=== PATIENT | female | born 1960 | race Caucasian/White ===

== ENCOUNTER 2017-05-23 08:30 | Outpatient (RCR) | payer OTHER, SELFPAY ==
--- NOTE | 2017-05-23 11:09 | BH.SGPN ---
Service Group Progress Note - Session Psychotherapy Session #1 Date Open:: 18 - 6 group members Time Started:: 09:03 Time Stopped:: 10:10 Targeted Problem #:: 1 Type of Group:: Process Goal of Group:: The goal of today's group was to check-in with client's mood, stressors, and positives, and review homework. Behaviors/Verbalizations/Mental Status:: Client's first day of group Client Response/Progress/Benefit:: Client responded well to session, receptive to supportive statements and open in discussion. Client reports feeling apprehensive today as she was worried about fitting in at group, but shared once she heard others talk I felt like I liked all of you right away. Client shared group seems authentic and client likes knowing people will care about how she genuinely feels rather than wanting a fake answer. Client expressed her depression has brought client to IOP as client has been isolating, feeling hopeless, and having a hard time functioning. Client reported she wants to work on many things during IOP, but mainly wants to learn how to get her life back on track. Client received numerous comments of support which client shared helped her feel more hopeful. Client seemed to benefit from engaging with peers and gaining emotional support. Client to continue IOP to prevent decompensation and reduce depressive symptoms. Eye Contact:: Fair Motor Activity:: Appropriate Appearance:: Neat Mood:: Anxious, Depressed Affect:: Constricted - Client became tearful when discussing symptoms Thoughts:: Linear, No evidence of hallucinations/delusions noted Staff Interventions:: Therapist used open-ended questions to elicit information about client's current stressors and mood state. Therapist was supportive by using active listening and reflection.
--- NOTE | 2017-05-23 13:00 | BH.COMM ---
Communication Note - Communication with Client Communication Note: Therapist followed up with client after her first day in IOP. Client shared she enjoyed her first day, liking the structure of group and her peers. Client was receptive to this therapist being client's individual therapist throughout IOP. Therapist gave client a worksheet to help identify treatment goals and symptoms. Client willing to complete the worksheet and meet with therapist later this week.
--- NOTE | 2017-05-23 17:03 | BH.SGPN_ITS ---
Service Group Progress Note - Session Psychotherapy Session #2 Date Open:: 05/23/17 Time Started:: 10:23 Time Stopped:: 11:17 Targeted Problem #:: 1 Type of Group:: Illness Management - 6 participant Goal of Group:: To increase understanding of the various life chapter?s people can go through and the impacts various internal and external factors may have on what chapter someone may currently be on. Another goal was to increase self- awareness of view of their past, present, and future. Client Response/Progress/Benefit:: Client first day in IOP program and was adjusting to the dtnamics of the group. She did well to remain attentive throughout and easily engaged in the discussion reviewing whether or not we have the power to change the course of our own path. Client discussed with the group feeling as though change is possible but that at times it seems as if she does not know where to begin. Client indicated connecting with the activity in which participants were given 2 descriptions of the same thing and challenged to guess what they think these things are. She expressed that this had challenged her to view things form another perspective and opened the door to beginning to see her ability to change the current chapter of lefe she is in by viewing her circumstances differently. CLient benefited from the support and encouragement provided by the group and noted relating to others experiences. CLient recommended continuing IOP to further explore areas of treatment relevent to decreasing current symptoms. Eye Contact:: Good Motor Activity:: Appropriate Appearance:: Casual Speech:: Appropriate Mood:: Euthymic Affect:: Congruent Thoughts:: Linear, Logical, No evidence of hallucinations/delusions noted Staff Interventions:: Therapist provided each group member with a handout labeled ?Chapters of My Life? and facilitated group discussion about each of the five chapters from the handout. Therapist led an activity to help client?s gain self-awareness of how perspective impacts the chapter we may be on. Therapist provided support by using reflective listening and providing feedback. Psychotherapy Session #3 Date Open:: 05/23/17 Time Started:: 11:25 Time Stopped:: 12:15 Targeted Problem #:: 1 Type of Group:: Functional Skills Development - 6 participants Goal of Group:: To provide education regarding the 7 steps to effective decision making and assist client in identifying the personal steps needed to act on the decision to move past current chapter of life. Another goal was to identify what strategies and supports may help them move to the next chapter in life. Client Response/Progress/Benefit:: Client again did wellt o remain engaged and attentive throughout session. She opnely discussed how fear of judgement and self doubt have impacted her ability to make the decision to incorporate healthier changes in her own life. CLient indicated that her depression has been so bad in the past that she has not had the energy or motivation to do anything about it. She disclosed feeling as though reaching out for help and agreeing to attend the IOP program was a major step towards changing how she manages depressive symptoms moving forward. CLient benefited from reviewing the 7 steps to effective decision making and identified making the decision to implement positive self talk statements into her daily routine. CLient displaying progress in her willingness to open up to the group. She is recommended ongoing IOP tx to maintain stability and continue to work on managing sx of depression. Eye Contact:: Good Motor Activity:: Appropriate Appearance:: Casual Speech:: Appropriate Mood:: Euthymic Affect:: Constricted Thoughts:: Linear, Logical, No evidence of hallucinations/delusions noted Staff Interventions:: Therapist processed which chapter each group member identified for the past, present and future. Provided education regarding the 7 steps to effective decision making and assisted clients in applying this concept to personal life. Therapist used open ended questions to elicit elaboration. Therapist led discussion about what has helped each person move to the current life chapter. Therapist assisted clients with identifying what are barriers to moving forward. Therapist provided support by using active listening and providing feedback.
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
--- NOTE | 2017-05-26 10:44 | BH.MTP_ITS ---
[facility] Treatment Plan - Patient Information Program Physician:: Olga Villegas Primary Therapist:: Shanita Tripathi - Psychiatric Diagnoses Psychiatric Diagnoses:: Bipolar 2 disorder ; Generalized anxiety disorder Diagnosis Code(s):: F 31.81 - Estimated LOS Estimated LOS (in weeks):: 6 Problem/Goal #1 - Problem/Goal #1 Stated Goal:: Client will increase mood stability and reduce depression due to Bipolar II through Intensive Outpatient Services. Description of Barriers: Client reports multiple negative core beliefs of self and cognitive distortions that impact client?s self-esteem and cause client to isolate. Client reports her depressive symptoms have become ?so mind-bogglingly bad? that she has not been leaving the house or engaging in pleasurable activities, ?even though I know it would help.? Client reports insight to unhealthy coping patterns, but expresses difficulty with challenging her thoughts and changing behaviors. Client shares her weight is an ongoing stressor and trigger to her depression and anxiety as client reports it keeps her from being social. Lastly, client reports difficulty with expressing her emotions as she has suppressed them throughout the years. Client states this has led to self-judgment and criticism as client shared she ?should? feel happy. Functional Impact: Client, who was referred by Dr. Klein, reports a history of bipolar 2 disorder and generalized anxiety disorder. At admission, client reported her symptoms have been predominantly depressed over the past several years with her depression being worse over the past few months. Client reports belief her current worsening symptoms are due to recent holiday season and winter. Client endorses depressed mood with anhedonia, decreased energy, increased appetite, negative thoughts of self, hopelessness, and difficulty concentrating. Client reported passive thoughts of although states she will never act.? Client shared her depression and anxiety prevent client from functioning at her baseline as client is unable to work, has been isolating, and reports poor self-esteem. Goal Relevant Strengths/Supports: Client appears intelligent, kind, and motivated in her treatment process. Client reports strong support from her and states having a few close friends who understand client's current struggles. Client is medication compliant and is connected to outpatient psychiatry. Client reports stepping out of my comfort zone and coming to group as a huge strength as client has not been leaving the house. Client identified music as a positive force in her life and would like to get back into playing it. - Objectives Objective #1 Stated Objective: Client will identify at least 2-3 negative self-talk messages used to reinforce feelings of worthlessness and replace thoughts with positive messages. Interventions: Therapist will help client identify distorted, negative beliefs about self and replace with more realistic, affirmative messages. Therapist will use CBT to help client increase insight to the connection between thoughts , emotions, and behaviors. Discharge Criteria: Client will have achieved this goal when can verbalize at least 2 negative self-talk messages and effectively replace those thoughts with affirmative messages. Target Date: 07/04/17 Review Date: 06/20/17 Status: open Objective #2 Stated Objective: Client will reduce isolation and anhedonia through learning 2- 3 healthy coping skills to break the negative maintenance cycle of depression. Interventions: Therapist will provide psychoeducation on depression and help client increase awareness of personal warning signs, thoughts, and behaviors keeping client stuck in an unhealthy cycle of depression. Therapist will assist client in setting small goals to promote behavioral activation and increase self -confidence. Therapist will teach client various coping skills to reduce depression and increase expressing emotion in a healthy way. Discharge Criteria: Client will have accomplished this goal when can report reduced isolation and utilizing at least 2 healthy coping skills to break the unhealthy maintenance cycle of depression. Target Date: 07/04/17 Review Date: 06/20/17 Status: open Problem/Goal #2 - Problem/Goal #2 Stated Goal:: Client will reduce overall frequency, intensity, and duration of anxiety and ruminations so that daily functioning is not impaired. Description of Barriers: Client reports multiple negative core beliefs of self and cognitive distortions that impact client?s self-esteem and cause client to isolate. Client reports her depressive symptoms have become ?so mind-bogglingly bad? that she has not been leaving the house or engaging in pleasurable activities, ?even though I know it would help.? Client reports insight to unhealthy coping patterns, but expresses difficulty with challenging her thoughts and changing behaviors. Client shares her weight is an ongoing stressor and trigger to her depression and anxiety as client reports it keeps her from being social. Lastly, client reports difficulty with expressing her emotions as she has suppressed them throughout the years. Client states this has led to self-judgment and criticism as client shared she ?should? feel happy. Functional Impact: Client, who was referred by Dr. Klein, reports a history of bipolar 2 disorder and generalized anxiety disorder. At admission, client reported her symptoms have been predominantly depressed over the past several years with her depression being worse over the past few months. Client reports belief her current worsening symptoms are due to recent holiday season and winter. Client endorses depressed mood with anhedonia, decreased energy, increased appetite, negative thoughts of self, hopelessness, and difficulty concentrating. Client reported passive thoughts of although states she will never act.? Client shared her depression and anxiety prevent client from functioning at her baseline as client is unable to work, has been isolating, and reports poor self-esteem. Goal Relevant Strengths/Supports: Client appears intelligent, kind, and motivated in her treatment process. Client reports strong support from her and states having a few close friends who understand client's current struggles. Client is medication compliant and is connected to outpatient psychiatry. Client reports stepping out of my comfort zone and coming to group as a huge strength as client has not been leaving the house. Client identified music as a positive force in her life and would like to get back into playing it. - Objectives Objective #1 Stated Objective: Client will identify 2-3 anxiety triggers and warning signs and 2 coping skills to use when feeling anxious. Interventions: Therapist will help client increase self-awareness of warning signs, cognitive distortions, and triggers for anxiety. Therapist will assist client in developing coping strategies to manage ruminating thoughts and challenge negative thinking. Discharge Criteria: Client will have met this goal when can identify at least 2 triggers/warning signs and 2 ways to cope with anxiety and rumination. Target Date: 07/04/17 Review Date: 06/20/17 Status: open
--- NOTE | 2017-05-26 10:44 | BH.MDN ---
Multi-Disciplinary Note - Note 45-min Individual Time Started:: 09:35 Date: 05/26/17 Purpose of session/treatment goals addressed:: The purpose of this session was to gather information on client's current symptoms, stressors, and treatment goals. Another goal was to build rapport and set a small daily goal. Eye Contact:: Good Motor Activity:: Appropriate Appearance:: Neat Speech:: Appropriate Mood:: Irritable, Dysthymic Affect:: Congruent - smiling and laughing occasionally. Thoughts:: Linear, Logical, No evidence of hallucinations/delusions noted Staff Interventions:: Therapist used active listening and open-ended questions to explore client's current stressors, symptoms, and supports. Therapist used strengths perspective to build rapport and help client identify positives. Therapist assisted client in identifying overall treatment goals and gave client homework to walk for a minute and a half today. Client Response:: Client responded well to session, open and receptive. Client has a history of bipolar disorder, but reported depression brought client to IOP as her symptoms have been worsening over the past year. Client identified her depressive symptoms as lack of motivation, anhedonia, increased appetite, negative thoughts, no energy, feelings of hopelessness, and a depressed mood nearly every day. Client stated she also experiences anxiety which includes avoidance behaviors and physical symptoms. Client shared she has enjoyed the structure and the realness of the program so far as client no longer wants to hide her emotions, she wants to leave the mask at the door. Client identified her treatment goals as reducing isolation by getting out of the house at least three days a week, reducing negative thinking, and decreasing depression. Client reported her has been a positive support and she would like to include him in the treatment process. Client stated her weight has been an ongoing contributor to her overall mood as client shared it prevents her from going places, doing things she enjoys, and being social which exacerbates depression and keeps me in the cycle. Client was receptive to setting a goal today to walk for a minute and a half. Risks/Concerns:: Client denies suicidal ideation, plan, and intent as of 05/26/17. Progress Toward Goals/Plan:: No progress noted yet as client just started IOP. However, client appeared motivated to engage in treatment and reports her current medication has somewhat improved her mood. Client to continue IOP to prevent decompensation and promote mood stability. Time Stopped:: 10:25
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
--- NOTE | 2017-05-27 12:53 | BH.DR.ITP ---
Initial Treatment Plan - Patient Information Visit Information: ADMISSION DATE: EXPECTED LOS: 4-6 weeks Diagnoses:: Bipolar 2 disorder F 31.81 - Problems/Symptoms Problem #1:: Mood symptoms/depression Symptom:: Sad mood, anhedonia, decreased energy, passive thoughts of , biologic disruption of appetite. Problem #2:: Anxiety Symptom:: rumination
--- NOTE | 2017-05-27 15:35 | BH.SGPN_ITS ---
Service Group Progress Note - Session Psychotherapy Session #2 Date Open:: 05/26/17 Time Started:: 10:20 Time Stopped:: 11:17 Targeted Problem #:: 1 Type of Group:: Illness Management - 6 participants Goal of Group:: The goal of group was to increase understanding of the benefits social support provides in mental health wellness. Another goal was to increase self-awareness of the barriers that prevent client to seeking support or utilizing the support they have. Client Response/Progress/Benefit:: Client responded positively to group and was actively engaged in both discussion and activity portion of session. She indicated connecting with the topic of social supports and conversation reviewing the importance of accessing supports as well as common barriers in doing so. CLient expressed feeling as though she has very few supports at present but is hopeful to identify new ways of reaching out. She appeared to benefit from the support of the group environment as well as recognizing that other participants also struggle to access healthy levels of support. Client would benefit from increased focus on identifying ways to re-engage with current supports as well as strategies for addressing anxiety preventing her from doing so. Eye Contact:: Fair Motor Activity:: Appropriate Appearance:: Casual Speech:: Appropriate Mood:: Anxious, Dysthymic Affect:: Full Thoughts:: Linear, Logical, No evidence of hallucinations/delusions noted Staff Interventions:: Therapist led a group discussion about importance of social supports. Therapist facilitated an activity that required the group members to utilize support from each other. Therapist utilized the activity as a tool to connect the importance of accepting social support. Therapist provided support through reflective listening and giving feedback. Psychotherapy Session #3 Date Open:: 05/26/17 Time Started:: 11:22 Time Stopped:: 12:20 Targeted Problem #:: 1 Type of Group:: Functional Skills Development - 5 participants Goal of Group:: The goal of group was to increase understanding of the different types of social support. Another goal was to identify one type of support the client?s desire and establish one small step towards achieving that support. Client Response/Progress/Benefit:: Client continues to do well to provide positive input and actively participate in group. She remained engaged throughout the discussion reviewing the various types of social support available outside of personal relationships and provided the suggestion of cheondoism organizations. CLient discussed ways to identify if one's current support system is adequate as well as how to begin to repair or improve an area of support that may be lacking. She identified that by increasing her use of supports she may be encourage to begin leaving the house more often. She expressed wanting to increase her ability to identify warning signs she needs more support. Client recommended continued IOP tx focusing on reducing sx of anxiety. Eye Contact:: Good Motor Activity:: Appropriate Appearance:: Casual Speech:: Appropriate Mood:: Euthymic, Anxious Affect:: Congruent Thoughts:: Linear, Logical, No evidence of hallucinations/delusions noted Staff Interventions:: Therapist facilitated group discussion on the different types of social support and importance of each type of support. A social support worksheet, was utilized to give clients direction in identifying which type of support they desired, how it will help, and identifying the first small step towards the desired support. Therapist provided homework for each group member to try and accomplish the one small step each group member identified on the worksheet.
--- NOTE | 2017-05-27 15:39 | BH.NA_ITS ---
Physical Data - Vital Signs Pulse Rate: 72 Respiratory Rate: 14 Blood Pressure: 118/81 - Height/Weight Height: 1.73 m Weight:: 158.757 kg Weight in Pounds: 350.0 lbs Current Medication Compliance - Medication Compliance Do you take your medication as prescribed?: Yes Do you need assistance with taking medication?: No Have you had side effects from medication?: Yes - nortriptyline caused palpitations and weakness Nutritional History - Appetite Nutritional Instructions:: If client shows signs of a swallowing problem, weight change of 10 pounds or more in the last month, or is on a diabetic diet, the physician will review and request a dietitian consult, as appropriate. All unintentional weight loss will be referred to the physician for decision on need for dietitian consult. Describe your appetite:: Good Have you noticed a change in your eating habits lately?: Yes - appetite has been increased recently, corresponds to worsening depression Additional nutritional information:: Client drinks approx 6 cups of caffienated beverages daily. Functional Assessment - Sleep Pattern Describe any problems with sleeping: Currently denies problems with sleep while taking medications. - Activities Motor Activity:: Functional Sensory/Communication Assess - Hearing Problems Do you have any hearing problems?: Adequate - Communication Problems Do you have difficulty understanding what people are saying?: No Do you have trouble putting your thoughts into words or expressing what you want to say?: No Do people ever have trouble understanding what you say?: No What is your primary language?: Chinese Learning Assessment - Learning Barriers Learning Barriers:: Ready to learn Medical Problems/History - Metabolic Conditions Metabolic: Hypothyroidism - Gastrointestinal Conditions Gastrointestinal: Dyspepsia - GERD - Musculoskeletal Conditions Musculoskeletal: Arthritis - osteo - Pain Assessment Do you have acute or chronic pain?: No - Female Reproductive Do you think you may be ?: No Number of pregnancies:: 0 Number of children:: 0 Have you reached menopause?: Yes Do you have any history of breast disease?: No Surgical History - Surgical History Have you had any surgeries? If so, list type and date:: No Substance Abuse - Substance Abuse Please describe substance abuse in the last 30 days:: Client denies ETOH, tobacco, and illicit substance use. Mental Status Summary - Mental Status Significant Findings/Observations on Appearance and Mood:: Client is A&Ox4, casually dressed with appropriate hygiene and grooming. She makes good eye contact and has normal activity. Speech is clear and of regular rate and rhythm. Mild depression and mild-mod anhedonia. Affect is mood congruent. Logical associations. Normal process. No symptoms of delusions. Denies SI, but endorses intermittent passive thoughts of . No DI or hallucinations. Suicide Assessment - Suicidal Ideation Are you currently or have you been suicidal in the past?: Yes Suicidal Intentional Rating Scale (SIRS): Suicidal thoughts (past) Physician Notification: If Active suicidal thoughts/Will not contract for safety is checked, contact physician and document in the Physician Notification section below. Assault History/Potential - History of Assault Do you have a history of assaulting someone?: No Physician Notification: If yes, notify physician and document notification date and time below. Fall Risk Assessment - Age Age: Less than 60 - Mental Status Mental Status: Willing & able to ask for assistance when needed - Physical Status Physical Status: No problems - Impairments Impairments: None - Elimination Elimination: Continent AND independent - Gait or Balance Gait or Balance: Walks independently - Hx of Falls History of falls in the past 6 months: No known history - Medications/Substances Psychotropics:: Mood stabilizers, Anxiolytics (e.g. benzodiazepines) Medications/substances used within the past 24 hours or ordered to administer: 1 -2 of the medications/substances listed above - Total Score Total Points:: 1 RN Summary of Impressions - Impressions Recommendations: Include psychiatric and medical issues, treatment planning recommendations, and discharge planning needs. Impressions: Psychiatric Issues: bipolar 2, anxiety Impression: General Medical Conditions: hypothyroid, GERD, osteoarthritis - Level of Care How do the client's current symptoms and functional deficits support need for this level of care?: Client has been progressively decompensating for several months. She endorses isolation, poor motivation, and not being able to find pleasure in anything. She has had intermittent passive thoughts of , but denies SI. The client's mental health symptoms have caused somatic symptoms including GI upset and other stomach problems. She feels hopeless. Identifies as sole support person.
--- NOTE | 2017-05-27 15:46 | BH.SGPN_ITS ---
Service Group Progress Note - Session Psychotherapy Session #3 Date Open:: 05/27/17 - 8 group members Time Started:: 11:27 Time Stopped:: 12:25 Targeted Problem #:: 1 Type of Group:: Functional Skills Development Goal of Group:: To rehearse resilient factors and identify ways to maintain resilience despite hardships and stressors. Client Response/Progress/Benefit:: Client responded well to session, engaged in activity, but quiet at times in discussion. Client reported the activity and topic helped client recognize the resiliency traits she possesses as she and her peers often disqualify positives. Client identified ?getting out of my comfort zone? as a time client demonstrated resiliency. Client stated that the resiliency traits, if practiced and applied, can ?help make us well.? Client shared she plans to focus on accepting change is a part of life to promote resiliency. Client appeared to benefit from identifying ways she demonstrates resiliency and by learning how to maintain resiliency despite hardships. Progress noted in client's increased engagement in group and increased insight. Client to continue IOP to promote mood stability and prevent decompensation. Eye Contact:: Good Motor Activity:: Slowed Appearance:: Neat Speech:: Appropriate Mood:: Dysthymic Affect:: Flat Thoughts:: Linear, No evidence of hallucinations/delusions noted Staff Interventions:: Therapist led group in an activity in which group members were challenged to stay resilient despite various stressors and hardships added to activity. Therapist provided each group member with a stress ball and used stress ball as a tool to discuss factors of resilient personality. Therapist provided group members with a handout about the building blocks of resilience. Therapist provided support by using reflective listening.
--- NOTE | 2017-05-30 14:42 | BH.SGPN ---
Service Group Progress Note - Session Psychotherapy Session #2 Date Open:: 05/30/17 - 6 group members Time Started:: 10:18 Time Stopped:: 11:14 Targeted Problem #:: 1 Type of Group:: Illness Management Goal of Group:: To increase understanding of what stress is, identify current life stressors, and connect impact stressors have on mental health. Client Response/Progress/Benefit:: Client responded well to session, engaged in discussion. Client appeared to connect with the topic sharing stress can be a motivator, but chronic stress can lead to lack of functioning and increased depression. Client shared stress can impact physical, mental, and emotional well-being. Client identified her personal stressors as: loneliness, depression, weight, and isolation. Client shared her stress jar is currently overflowing which makes it hard for client as she feels overwhelmed. Client reported when her stress is overflowing? she shuts down and isolates. Client appeared to benefit from gaining awareness of personal stressors, stating ?I need to know what my stressors are so I can do something about it.? Client to continue IOP to prevent decompensation and promote use of healthy coping skills. Eye Contact:: Good Motor Activity:: Slowed Appearance:: Casual Speech:: Appropriate Mood:: Dysthymic Affect:: Constricted Thoughts:: Linear, No evidence of hallucinations/delusions noted Staff Interventions:: Therapist facilitated discussion about stress. Therapist facilitated an activity in which group members were asked to identify various stressors they have in their life currently. Therapist instructed group members to indicate if certain stressors were larger than others. Therapist led processing of each member?s stress jar and helped them connect impact the stress has on their mental health. Psychotherapy Session #3 Date Open:: 05/30/17 - 6 group members Time Started:: 11:20 Time Stopped:: 12:16 Targeted Problem #:: 1 Type of Group:: Functional Skills Development Goal of Group:: To identify what stressors clients have control over and what stressors have no control over. Another goal was to increase repertoire of healthy strategies to help manage stress. Client Response/Progress/Benefit:: Client responded well to session, anxious in activity, but able to manage emotions and complete task with group. Client stated the activity helped her gain awareness that she uses negative self-talk which reduces her confidence in managing stress. Client discussed the importance of putting energy into reducing stressors in her control rather than ruminating on things out of her control. Client's in control stressors included loneliness, getting out of the house, and depression. Client identified strategies for stress management such as accepting help from supports, communicating needs, and challenging self-doubt. Client appeared to benefit from increasing her repertoire of stressing reducing coping skills. Progress noted in client's increased awareness, but can continue to benefit from challenging negative thoughts. Eye Contact:: Good Motor Activity:: Appropriate Appearance:: Casual Speech:: Appropriate Mood:: Anxious Affect:: Constricted Thoughts:: Linear, No evidence of hallucinations/delusions noted Staff Interventions:: Therapist facilitated discussion about control versus no control and helped group members connect the concept to stressors. Therapist led discussion about importance of putting forth more energy on those stressors they can control. Therapist facilitated brainstorming of strategies to help manage stress level. Therapist provided support by using active listening and providing feedback.
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
--- NOTE | 2017-06-01 15:25 | BH.SGPN ---
Service Group Progress Note - Session Psychotherapy Session #1 Date Open:: 06/01/17 Time Started:: 09:08 Time Stopped:: 10:09 Targeted Problem #:: 1 Type of Group:: Process - 7 participants Goal of Group:: The goal of group was to check-in with clients on current mood, stressors, and positives and from previous group session. Client Response/Progress/Benefit:: Client did well to engage in session and appeared responsive to group. She discussed feeling kind of positive but I know I have a lot of work left which is daunting. CLient went on to descirbe feeling overwhelmed by everything she is trying to do in order to improve her mood but feels as though she is not making as much progress as she should be. She went on to share recently beginning to experience guilt regarding not having her brother in her life despite knowing he is toxic. Client benefited from fellow participants discussing similar experiences and hearing the thoughts and strategies that work for other members of the group in combating negative self-talk. Client indicated that she knows she needs to practice healthy boundary setting and self care and indicated plans to begin focusing more on what she is doing right throughout the day. Client recommended continued IOP to maintain stability and continue to challenge distorted thinking patterns and neg. core beliefs. Eye Contact:: Fair Motor Activity:: Appropriate Appearance:: Casual Speech:: Appropriate Mood:: Dysthymic Affect:: Flat Thoughts:: Linear, Logical, No evidence of hallucinations/delusions noted Staff Interventions:: Therapist used open-ended questions to elicit information about client's current stressors and mood state. Therapist was supportive by using active listening and reflection. Therapist utilized a quote to introduce the topic of the day.
--- NOTE | 2017-06-01 15:32 | BH.SGPN_ITS ---
Service Group Progress Note - Session Psychotherapy Session #2 Date Open:: 06/01/17 Time Started:: 10:20 Time Stopped:: 11:10 Type of Group:: Illness Management - 9 group members Goal of Group:: To increase understanding of fear and explore the negative impact fear of failure can have on mental health and decision making. Client Response/Progress/Benefit:: Pt was an active participant in group activity and discussion. Participated with group in discussion on definitions of failure. Shared how failure relates to her citing her setbacks with weight manangment ? I've lost and gained weight so many times. This is the worset problem of my life She worked with the group during activity and processed the activity with group pointing out how learning from setbacks, missteps, and failures during the activity helped them accomplish their goals. Shared the top 3 things that she was able to take from the group which were; Failures can be looked at as setbacks instead of complete failures, fear of failure keeps us from trying, and progress doesn't always have to mean moving forward. Progress noted through increased awareness and education on how fear of failure impacts mental wellness. Able to identify that avoiding fear altogether is unrealistic. Also able to identify how failure can be beneficial. Eye Contact:: Fair Motor Activity:: Restless Appearance:: Casual Speech:: Appropriate Mood:: Anxious, Depressed Affect:: Congruent Thoughts:: Linear, Logical, No evidence of hallucinations/delusions noted Staff Interventions:: Therapist facilitated discussion about fear and impact fear of failure can have. Therapist led group in an experiential activity in which client?s would fail numerous times throughout, but were given the opportunity to try again. Therapist led the processing of the activity and assisted clients with connecting how fear of failure impacted their decision making during the activity. Psychotherapy Session #3 Date Open:: 06/01/17 Time Started:: 11:20 Time Stopped:: 12:10 Type of Group:: Functional Skills Development - 9 group members Goal of Group:: To identify the impact fear of failure has had on the group members lives and identify strategies to overcome fear of failure. Client Response/Progress/Benefit:: Active participant in group discussion and activity. Completed worksheet regarding how failure has impacted them, what they gained from the group topic, and how they plan to use topics discussed today in daily life. Shared in small group that she learned today Ways to learn from past failures to overcome fear of failure. Stated that she plans to not be so hard on myself and rewarding my success along the way Progress noted AEB increased education and awareness. Will continue in IOP to maintain gains and prevent further decompensation. Eye Contact:: Fair Motor Activity:: Restless Appearance:: Casual Speech:: Appropriate Mood:: Anxious, Depressed Affect:: Congruent Thoughts:: Linear, Logical, No evidence of hallucinations/delusions noted Staff Interventions:: Therapist provided each group member with a worksheet to complete that asked questions about their experiences with fear of failure. Therapist led the processing of the worksheet, helping client?s connect how fear of failure has impacted them. Therapist provided support by using active listening and providing feedback.
--- NOTE | 2017-06-03 14:43 | BH.NET_ITS ---
Nursing Education/Training - Session Information Type of Session: Individual Symptom management (include medical issues as they relate to psychiatric symptoms):: Client wished to discuss starting on a prescription for Contrave that was provided several months ago by her PCP for weight loss. After discussion with Dr. Villegas, client was advised by this RN that this is contraindicated with her bipolar disorder and current medications. Burproprion is known to destabilze patient's with bipolar disorder and naltrexone should not be used with Haugan as it may block the effects of the Haugan. Client is advised to address her PCP for other weight loss options. She verbalizes understanding and is thankful for the recommendations; she is not planning to start the Contrave. MICHELLE PanN, RN
--- NOTE | 2017-06-03 15:34 | BH.SGPN_ITS ---
Service Group Progress Note - Session Psychotherapy Session #1 Date Open:: 06/03/17 Time Started:: 09:05 Time Stopped:: 10:15 Targeted Problem #:: 1 Type of Group:: Process Goal of Group:: The goal of today's group was to check-in with client's mood, stressors, and positives, review homework and introduce topic for the day. Client Response/Progress/Benefit:: Pt shared she is feeling crabby this morning, but didn't have a specific reason for being agitated. Pt reported she did not want to attend group this morning, however is glad she chose to attend. Pt reported she used positive self-talk to get herself to group today. Pt shared she reminded herself if she stayed home it would not make her feel better and later in the day she would beat myself up for not going. Pt reported feeling hopeful this morning that she was able to push through the initial negativity this morning. Pt showing progress by using positive self-talk to overcome negat ivity. Eye Contact:: Good Motor Activity:: Appropriate Appearance:: Casual Speech:: Appropriate Mood:: Euthymic, Irritable Affect:: Congruent Thoughts:: Linear, Logical, No evidence of hallucinations/delusions noted Staff Interventions:: Therapist used open-ended questions to elicit information about client's current stressors and mood state. Therapist was supportive by using active listening and reflection.
--- NOTE | 2017-06-06 15:19 | BH.SGPN ---
Service Group Progress Note - Session Psychotherapy Session #1 Date Open:: 06/06/17 Time Started:: 09:05 Time Stopped:: 09:57 Targeted Problem #:: 1 Type of Group:: Process - 6 participants Goal of Group:: The goal of today's group was to check-in with client's mood, stressors, and positives, review homework. Client Response/Progress/Benefit:: Client well engaged in session and openly participated throughout. She provided positive encouragement to fellow participants as well as remained receptive of feedback provided. CLient shared that she had felt as though she made some progress over the weekend as she had completed her goals of sitting outside and walking on the treadmill. Client indicated I know it may not seem like much to everyone else, but that's actually a lot for me. She appeared to benefit from reassurance provided by group members as well as others discussing similar experiences. Client reflected upon struggling to feel as though the progress she is making actually counts. She indicated that taking time to reflect back on the skills she has learned as well as challenge the distorted thoughts is beginning to help. She appears to be making progress in identifying when she is using distorted thinking patterns. Recommended continued IOP tx to improve Client ability to consistently apply healthy internal coping skills and improve self-talk messages. Eye Contact:: Good Motor Activity:: Appropriate Appearance:: Casual Speech:: Appropriate Mood:: Anxious, Dysthymic Affect:: Congruent Thoughts:: Linear, Logical, No evidence of hallucinations/delusions noted Staff Interventions:: Therapist used open-ended questions to elicit information about client's current stressors and mood state. Therapist reviewed homework assigned from previous groups. Therapist was supportive by using active listening and reflection.
--- NOTE | 2017-06-06 16:34 | BH.SGPN ---
Service Group Progress Note - Session Psychotherapy Session #2 Date Open:: 06/06/17 Time Started:: 10:10 Time Stopped:: 11:05 Targeted Problem #:: 1 Type of Group:: Illness Management Goal of Group:: To increase self-awareness of current reality in regards to mental wellness and desired mental wellness. Client Response/Progress/Benefit:: Client active and engaged throughout session AEB contributing thoughts to discussion and listening to peers. Client identified her lack of self-worth becomes an obstacle for her own growth because client reports she will do anything for others, but not for myself. Client recognizes need to identify and overcome the obstacles she places in front of herself. Client reported for her current reality she feels she is in a hole and currently in the recovery zone because she is making progress with opening up about her emotions, playing piano and walking. Client reported in her desired reality she wants to be out of the hole using her coping skills, volunteering, signing, and getting basic tasks and chores done efficiently. Client seemed to benefit from identifying a future goal for herself in regards to her mental health. Progress noted AEB client reporting she is making steps forward by using her skills and decreasing anxiety. Eye Contact:: Good Motor Activity:: Appropriate Appearance:: Casual Speech:: Appropriate Mood:: Anxious, Dysthymic Affect:: Congruent Thoughts:: Linear, Logical, No evidence of hallucinations/delusions noted Staff Interventions:: Therapist facilitated group discussion about current reality in regards to mental health. Client provided each group member a piece of paper and asked them to draw their current reality. Therapist led the processing of each group members drawing. Therapist provided each group member with a second piece of paper and asked clients to draw desired mental wellness. Therapist processed each group members drawing, helping clients connect the two realities. Psychotherapy Session #3 Date Open:: 06/06/17 Time Started:: 11:15 Time Stopped:: 12:05 Targeted Problem #:: 1 Type of Group:: Functional Skills Development Goal of Group:: To identify obstacles in clients path to mental wellness and identify strategies to help one overcome various obstacles. Client Response/Progress/Benefit:: Client contributed positively to discussion and listened attentively to peers. Client identified the personal obstacles that are holding her back from desired reality include: fear of outside, overwhelming thoughts, depression, and dread of what might happen. When processing activity client noted the importance of using positive supports because when don't ask for help she keeps her self stuck from progress. Client seemed to benefit from increased awareness of her personal obstacles and increased repertoire of strategies that can help her overcome obstacles. Eye Contact:: Good Motor Activity:: Appropriate Appearance:: Casual Speech:: Appropriate Mood:: Anxious, Dysthymic Affect:: Congruent Thoughts:: Linear, Logical, No evidence of hallucinations/delusions noted Staff Interventions:: Therapist facilitated group discussion about obstacles and the hesitations of overcoming obstacles. Client led group in activity that gave client the opportunity to problem solve various obstacles throughout. Therapist helped clients connect how each obstacle is preventing them from achieving their desired reality. Therapist provided support by using reflective listening and providing feedback.
--- NOTE | 2017-06-08 10:24 | BH.SGPN ---
Service Group Progress Note - Session Psychotherapy Session #1 Date Open:: 18 - 6 group members Time Started:: 09:11 Time Stopped:: 10:09 Targeted Problem #:: 1 Type of Group:: Process Goal of Group:: The goal of today's group was to check-in with client's mood, stressors, and positives, and introduce topic for the day. Client Response/Progress/Benefit:: Client responded well to session, active participant and providing suggestion to peers. Client reports mixed emotions this morning as she stated waking up feeling determined and strong but then saw an injured horse on her way to group which caused client to cry and feel depressed. Client stated, I'm still feeling determined to keep progressing, but that got to me. Therapist and group provided emotional support and normalized client's emotions. Client stated she has been seeing a lot of progress, she has been walking on the treadmill, cleaning, and setting goals each day. Client shared plans to go to [employer] tomorrow and get out of the house. Client stated, it may not seem like much to others, but it's a huge win for me. Client appeared to benefit from processing emotions and reflecting on progress. Client to continue IOP to promote gains and reduce depression. Eye Contact:: Good Motor Activity:: Appropriate Appearance:: Casual Speech:: Appropriate Mood:: Depressed Affect:: Constricted Thoughts:: Linear, No evidence of hallucinations/delusions noted Staff Interventions:: Therapist used open-ended questions to elicit information about client's current stressors and mood state. Therapist was supportive by using active listening and reflection.
--- NOTE | 2017-06-08 13:44 | BH.MDN ---
Multi-Disciplinary Note - Note Family Time Started:: 12:25 Date: 06/08/17 Purpose of session/treatment goals addressed:: The purpose of this session was to engage client's in the treatment process through use of psychoeducation and communication of mental health warning signs and needs. Another goal was to address unrealistic expectations, barriers, and establish individual and couple goals to promote client's progress. Other topics included: cognitive distortions, boundaries, and strengths. Eye Contact:: Good Motor Activity:: Appropriate Appearance:: Casual Speech:: Appropriate Mood:: Dysthymic Affect:: Full Thoughts:: Linear, No evidence of hallucinations/delusions noted Staff Interventions:: Therapist used active listening and open-ended questions to explore client's current stressors, barriers, and mental health needs. Therapist elicited discussion between client and her to promote mental health support, open communication, and awareness of warning signs and distortions. Therapist educated client's on anxiety, depression, and cognitive distortions. Therapist explored client's unrealistic expectations of self and helped client challenge negative thought patterns that maintain a maintenance cycle for depression. Therapist helped client and her explore ways to increase communication and set boundaries with other family members. Therapist gave client and homework to complete a fear ladder which will help client slowly increase confidence in managing anxiety-provoking situations. Therapist used strengths-perspective to help client focus on progress. Client Response:: Client and , Nicholas, responded well to session, open to increase communication of mental health needs. Client had identified several goals for the session including challenging ruts or negative thoughts, discussing visiting Nicholas's mom, finding things to talk about together. Nicholas shared he would like to learn how to help client increase self-confidence and maintain progress. Client and Nicholas reflected on progress, such as reduced isolation and increased positive thinking. However, client reported she often disqualifies her progress because client has high expectations for self. Therapist and Nicholas helped client identify cognitive distortions and reframe into more realistic thoughts for client's progress. Client expressed she would like to be able to visit Nicholas's mother out of love for Nicholas, but client feels triggered while she is there as Nicholas's mother talks about weight, mosque, and has little mental health awareness. After processing barriers and problem solving with therapist, client and Nicholas stated it would be helpful to set time and topic boundaries when they visit to help client feel more comfortable. The couple also talked about bringing their dog for support and scheduling something enjoyable to do together that day. Client shared her concerns with the couple's communication. Client stated, I feel bad when Nicholas calls me and I have nothing to say, it's like my life is that worthless. Client able to challenge the cognitive distortion and was receptive to discussing different ways in which someone can show love. Nicholas stated he does not want or expect client to talk all the time, sharing quality time is more important to both of them. The couple was open to implementing a date/interest jar in which they will write ideas for dates and select one each month. Client shared this would help her feel more productive and give them something exciting to do. Client became enthralled when talking about getting back into blue [employer] music together. Client shared her negative thoughts of self and weight continue to prevent her from going places and getting out of the house. However, client recognized that working to reduce depression and negative thinking will positively impact weight as well. Client and Nicholas agreed to make small goals to help increase client's confidence and reduce anxiety. Client also willing to continue to challenge negative thoughts and communicate needs with Nicholas. Risks/Concerns:: Client denies suicidal ideation, plan, and intent as of 06/08/17. Progress Toward Goals/Plan:: Client demonstrating progress towards treatment goals as shown by her reports of less dark thinking and increased engagement in activities such as walking, cleaning, and playing music. Client continues to report a depressed mood, negative core beliefs, and anxiety. Client to continue IOP to promote use of healthy coping skills and to increase mood stability. Client and to continue communicating needs and establish small goals. Time Stopped:: 13:25
--- NOTE | 2017-06-08 15:46 | BH.SGPN ---
Service Group Progress Note - Session Psychotherapy Session #2 Date Open:: 06/08/17 Time Started:: 10:18 Time Stopped:: 11:14 Targeted Problem #:: 1 Type of Group:: Illness Management - 6 participants Goal of Group:: To increase understanding of communication and the various types of communication. Another goal was to increase understanding of impact communication styles can have. Client Response/Progress/Benefit:: Client responded well to session and indicated connecting with the topic. She served as an active participant and provided input as well as asked questions throughout. CLient discussed with the group the potential ways in which communication can impact mental health and idenntified potential benefits of effective communication. Client benefited from psychoeducation portion reviewing various types of communication, characteristics of each, and potential pros/cons. Client displayed progress in her level of insight regarding her own communication style and indicated identifying with assertive or passive forms of communication. CLient recommended continued focus on ways to communicate her needs with supports during times of increased anxiety or depression. Eye Contact:: Good Motor Activity:: Appropriate Appearance:: Casual Speech:: Appropriate Mood:: Dysthymic Affect:: Constricted Thoughts:: Linear, Logical, No evidence of hallucinations/delusions noted Staff Interventions:: Therapist facilitated the group discussion about communication and explained the different types of communication. Therapist assisted group members in connecting the communication styles to the way they communicate and impact the communication style has on their relationships. Therapist provided support by using active listening and providing feedback. Psychotherapy Session #3 Date Open:: 06/08/17 Time Started:: 11:19 Time Stopped:: 12:16 Targeted Problem #:: 1 Type of Group:: Functional Skills Development - 6 participants Goal of Group:: To identify important components of communication and practice specific, clear communication. Client Response/Progress/Benefit:: Client again did well to remain engaged in the group. SHe was able to work with fellow participants to utilize effective communication skills in order to overcome barriers and give the instructions needed for a fellow participant to complete the task. Client benefited from applying the reflections regarding communication in the activity to communicating in daily life. She indicated relating to difficulties in knowing how to describe her mental health symptoms to supports. CLient displayed progress in overall levels of participation durig group. She is recommended ongoing IOP tx to maintain stability and continue to improve ability to challenge use of distorted thinking patterns. Eye Contact:: Good Motor Activity:: Appropriate Appearance:: Casual Speech:: Appropriate Mood:: Dysthymic Affect:: Congruent Thoughts:: Linear, Logical, No evidence of hallucinations/delusions noted Staff Interventions:: Therapist explained challenge activity to group, connecting skills learned from previous session to current activity. Therapist led group in an activity in which participants would need to use communication skills to overcome communication barriers and assist another participant in accomplishing a task. Therapist facilitated processing of challenge activity and helped connect skills used in activity to real life situations.
--- NOTE | 2017-06-10 15:36 | BH.SGPN ---
Service Group Progress Note - Session Psychotherapy Session #2 Date Open:: 06/10/17 Time Started:: 10:30 Time Stopped:: 11:20 Targeted Problem #:: 1 Type of Group:: Illness Management Goal of Group:: The goal of this session was to increase self-awareness of what is holding them back from moving towards mental wellness and discuss importance of taking action in their treatment. Client Response/Progress/Benefit:: Pt active participant AEB many contribuitions throughout session as well as listening attentively to others. Pt connected with others that she tends to have awareness of what isn't helping her, but struggles with following through on what she thinks would be a healthier choice. Pt identified things that have too much control over her include: fear of change, fear of failure, low self-esteem, stress, physical limitations, not wanting to go out of the house, what-ifs, and fear of leaving home. Client identified fear in general is what has the most power of her and tends to keep her stuck. Client seemed to benefit from increased awareness of what is holding her back. Client showing progress with increased verbal contributions and opening up to others. Eye Contact:: Good Motor Activity:: Appropriate Appearance:: Casual Speech:: Appropriate Mood:: Euthymic, Anxious Affect:: Congruent Thoughts:: Linear, Logical, No evidence of hallucinations/delusions noted Staff Interventions:: Therapist facilitated discussion about what it means to take action in achieving mental health wellness. Therapist led activity in which clients were asked to identify the symptoms and things that they would like to take back control over. Therapist provided support by using active listening. Psychotherapy Session #3 Date Open:: 06/10/17 Time Started:: 11:30 Time Stopped:: 12:20 Targeted Problem #:: 1 Type of Group:: Functional Skills Development Goal of Group:: The goal of this session was to create a 30 day action plan that provides small goals that work towards taking action on one thing they would like to take back control over. Client Response/Progress/Benefit:: Client receptive to group AEB actively engaged in discussion and activity. Client identified for her 30 day plan of change she is focusing on decrease isolative behaviors. Client reported the motivation to follow through with this plan because decrease isolation could help client establish healthy relationships. Client identified the first step she is willing to take is to go outside each day with her dog. Client reported the next step she's willing to take is to call one person daily. Client shared the next step is to eliminate one hour of TV and use that time to sit in the sun or do something different in the house. Client reported lastly she will focus on reducing time on phone and drive to the local library at least twice a week. Client seemed to benefit from identifying small steps she's willing to take throughout a 30 day period to help reduce her isolative behaviors. Eye Contact:: Good Motor Activity:: Appropriate Appearance:: Casual Speech:: Appropriate Mood:: Euthymic Affect:: Congruent Thoughts:: Linear, Logical, No evidence of hallucinations/delusions noted Staff Interventions:: Therapist provided materials and guidance to help clients create a 30 day action plan. Therapist provided support by giving feedback and using active listening.
--- NOTE | 2017-06-13 10:40 | BH.SGPN ---
Service Group Progress Note - Session Psychotherapy Session #1 Date Open:: 06/13/17 Time Started:: 09:08 Time Stopped:: 10:00 Targeted Problem #:: 1 Type of Group:: Process - 6 group members Goal of Group:: The goal of today's group was to check-in with client's mood, stressors, and positives, review homework and introduce topic for the day. Client Response/Progress/Benefit:: Client reported she had a good weekend which she reported is surprising given her was gone for the weekend. Client shared she was able to get through the weekend in a positive way by having a schedule for each day that gave her something to do instead of syndrome. Client shared she felt more productive and found herself sitting around doing nothing. Client reported she did walk on the treadmill, went outside with her dog, and played the piano. Client reports she recently started to read a book that really has connected to what she is learning during IOP. Client demonstrating progress as evidenced by client reporting utilization of healthy coping strategiesand reporting decreased anxiety. Eye Contact:: Good Motor Activity:: Appropriate Appearance:: Casual Speech:: Appropriate Mood:: Euthymic Affect:: Congruent Thoughts:: Linear, Logical, No evidence of hallucinations/delusions noted Staff Interventions:: Therapist used open-ended questions to elicit information about client's current stressors and mood state. Therapist was supportive by using active listening and reflection.
--- NOTE | 2017-06-13 14:02 | BH.SGPN_ITS ---
Service Group Progress Note - Session Psychotherapy Session #2 Date Open:: 06/13/17 - 6 group members Time Started:: 10:10 Time Stopped:: 11:00 Targeted Problem #:: 1 Type of Group:: Illness Management Goal of Group:: To increase understanding of a crisis and improve client?s awareness of personal warning signs before crisis. Client Response/Progress/Benefit:: Client responded well to session, active in discussion. Client appeared to connected with the topic sharing ?in a crisis it? s hard to think clearly? which is why it?s important to recognize warning signs to prevent crisis. Client shared ?anything can be a crisis? depending on the level of stress a person has. Client described her personal crisis and ?feeling like I?m foggy and in a storm.? Client shared when she is in crisis her face gets out, she feels out of control, and client begins to panic. Client appeared to benefit from increasing awareness of what crisis is and how to better recognize her warning signs. Progress noted as client shared she has been using her and deep breathing to prevent crisis. Eye Contact:: Good Motor Activity:: Appropriate Appearance:: Neat Speech:: Appropriate Mood:: Euthymic Affect:: Constricted Thoughts:: Linear, No evidence of hallucinations/delusions noted Staff Interventions:: Therapist facilitated group discussion about defining a crisis and specifying various events that are considered a crisis. Therapist led the group in discussion about identifying personal warning signs before a crisis and importance of being aware of those signs. Therapist provided support by using active listening and providing feedback. Psychotherapy Session #3 Date Open:: 06/13/17 - 6 group members Time Started:: 11:11 Time Stopped:: 12:05 Targeted Problem #:: 1 Type of Group:: Functional Skills Development Goal of Group:: To increase awareness of warning signs before a crisis and identify interventions/coping strategies that would help clients proactively manage potential crises. Client Response/Progress/Benefit:: Client responded well to session, active participant. Client shared group was helpful because ?I learned that crisis is a cycle and there are ways to de-escalate even during the peak.? Client identified her top warning signs for crisis as not taking care of self, eating too much, and increased crying spells. Client created a crisis kit to promote the use of healthy coping skills. Client?s kit included soft items for texture and grounding, items that remind client of nature and self-soothing, and a heart to remind client of her . Client appeared to benefit from increasing knowledge of the crisis cycle and establishing coping skills to reduce crisis. Client to continue IOP to promote mood stability and reduce negative thoughts. Eye Contact:: Good Motor Activity:: Appropriate Appearance:: Neat Speech:: Appropriate Mood:: Euthymic Affect:: Constricted Thoughts:: Linear, No evidence of hallucinations/delusions noted Staff Interventions:: Therapist led the group in discussion about identifying personal warning signs before a crisis and importance of being aware of those signs. Therapist provided the group with various types of items and asked each group member to select five items that represent something that would be helpful in managing their warning signs of a crisis. Therapist facilitated group processing of the crisis emergency kits each group member created. Therapist used open-ended questions to encourage elaboration of each item chosen for their kit. Therapist helped clients connect how the crisis emergency kit could help be a crisis prevention tool.
[2017-08-12 10:31] VITALS: BP 118/81; PULSE 72; RESP 14
== END 2017-06-13 23:59 ==
LOC: BHIOP 08:30
PROVIDERS: Visit Provider Psychiatry & Neurology Psychiatry
DX: F31.9 Bipolar disorder, unspecified (principal); F41.1 Generalized anxiety disorder; I49.9 Cardiac arrhythmia, unspecified; E03.9 Hypothyroidism, unspecified; Z79.899 Other long term (current) drug therapy
CPT/HCPCS: H0035; 90834; 90847; 90853

== ENCOUNTER 2017-06-15 09:00 | Outpatient (RCR) | payer OTHER, SELFPAY ==
[2017-06-14 01:08] VITALS: PULSE 72; RESP 14
--- NOTE | 2017-06-15 11:25 | BH.SGPN ---
Service Group Progress Note - Session Psychotherapy Session #1 Date Open:: 06/15/17 Time Started:: 09:06 Time Stopped:: 10:06 Targeted Problem #:: 1 Type of Group:: Process Goal of Group:: The goal of today's group was to check-in with client's mood, stressors, and positives, review homework and introduce topic for the day. Client Response/Progress/Benefit:: Client alert and oriented, attentive to others and provided feedback to peers. Client reported she is feeling more positive because she has been able to do things she hasn't done for a long time. client shared she has a new music goal of playing the barotone. Client demonstrating progress AEB client reporting decrease in depressive and anxious symptoms as well as utilizing her healthy coping strategies more consistently. Eye Contact:: Good Motor Activity:: Appropriate Appearance:: Casual Speech:: Appropriate Mood:: Euthymic Affect:: Congruent Thoughts:: Linear, Logical, No evidence of hallucinations/delusions noted Staff Interventions:: Therapist used open-ended questions to elicit information about client's current stressors and mood state. Therapist was supportive by using active listening and reflection.
--- NOTE | 2017-06-15 13:24 | BH.MDN_ITS ---
Multi-Disciplinary Note - Note 45-min Individual Time Started:: 12:23 Date: 06/15/17 Purpose of session/treatment goals addressed:: The purpose of this session was to address client's current stressors, progress, and barriers. Another goal was to challenge negative thinking patterns keeping client stuck and discuss discharge. Eye Contact:: Good Motor Activity:: Appropriate Appearance:: Neat Speech:: Appropriate Mood:: Euthymic Affect:: Full, Other - became tearful when expressing gratitude Thoughts:: Linear, No evidence of hallucinations/delusions noted Staff Interventions:: Therapist used open-ended questions to explore client's current stressors, barriers, and progress. Therapist discussed discharge with client and informed client on the process of aftercare. Therapist used solution- focused techniques to address client's most important barriers, negative thinking. Therapist taught client various thought challenging strategies and helped client reframe cognitive distortions. Therapist used strengths perspective to reflect on client's progress and increased in self-esteem. Client Response:: Client responded well to session, open to discussing barriers. Client shared she would like to work on challenging negative thinking as client does well while at [facility], but struggles more at home. Client stated she would also like to work on establishing a routine to fill the void time for when client discharges from [facility]. Client shared a negative thought that continues to keep client stuck is I should be doing more at home. Client reported when she thinks this way it leads to guilt and lack of self-esteem. 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 Client also identified self- care strategies she has been implementing to reduce depression such as walking, playing music, following her 30 plan, and reading a motivation book. After identifying the things client is doing she stated, I guess I really am doing a lot more, I wouldn't have been able to do those things a month ago. Client also challenged the negative thought by gaining a different perspective. Client shared if Nicholas was experiencing depression, I would do all of this for him. Client and therapist also discussed the importance of having self-awareness of negative thoughts and to stop herself in the moment and challenge them. Client reported it will help her to actually stop her behaviors and challenge the negative thinking out loud to reduce ruminating. Client reports plan to try these thought challenging coping skills throughout the week while working on her other goals of reducing isolation. Risks/Concerns:: Client denies suicidal ideation, plan, and intent as of . Client reports improved mood and reduced depressive symptoms which serves as a protective factor. Progress Toward Goals/Plan:: Client demonstrating significant progress towards treatment goals as shown by her report of improved mood, reduced isolation, and generalization of healthy coping skills. However, client continues to report negative thinking and anxiety that prevents client from doing things outside of her home. Client to continue IOP to promote gains and improve core beliefs. Client reports belief she will be ready to discharge at 6 weeks. Time Stopped:: 13:03
--- NOTE | 2017-06-15 13:25 | BH.SGPN ---
Service Group Progress Note - Session Psychotherapy Session #2 Date Open:: 06/15/17 - 6 group members Time Started:: 10:18 Time Stopped:: 11:08 Targeted Problem #:: 1 Type of Group:: Illness Management Goal of Group:: To increase understanding of pitfalls and impact can have on mental health. Client Response/Progress/Benefit:: Client responded well to session, quiet, but participating when prompted. Client appeared to connect with the quote, sharing, the easy path is what we've always done. Client stated pitfalls are things that keep one off track and stray from the right path. Client shared depression and anxiety can make one vulnerable to pitfalls because it makes you think negatively. Client reported pitfalls can lead to reduced self-esteem, self-sabotage, and increase mental health symptoms. Client appeared to benefit from gaining awareness of how pitfalls impact mental health. Progress noted in client's improved mood and generalization of healthy coping skills, but can continue to benefit from challenging negative core beliefs. Eye Contact:: Good Motor Activity:: Appropriate Appearance:: Neat Speech:: Appropriate Mood:: Euthymic Affect:: Constricted Thoughts:: Linear, No evidence of hallucinations/delusions noted Staff Interventions:: Therapist facilitated discussion about pitfalls and assisted group in identifying common pitfalls that can set you back. Therapist led group in an activity to help group understand impact pitfalls can have on oneself and identify strategies that could help you get back on the right path. Therapist provided support by using active listening and providing feedback. Psychotherapy Session #3 Date Open:: 06/15/17 - 6 group members Time Started:: 11:16 Time Stopped:: 12:15 Targeted Problem #:: 1 Type of Group:: Functional Skills Development Goal of Group:: To identify personal pitfalls and what keeps them stuck from moving forward. Client Response/Progress/Benefit:: Client responded well to session, active participant. Client connected the activity to life sharing lack of awareness will impact our communication with supports. Client identified personal pitfalls of hers as letting self-care go, closing out the world, low self-esteem, and catastrophizing. Client helped the group identify strategies to overcome and prevent pitfalls such as establishing a crisis plan, communicating with supports, and challenging negative thoughts. Client appeared to benefit from increasing awareness of personal pitfalls and identifying strategies to overcome them. Progress noted in client's increased self-confidence as she has increased what she shares with peers. Client to continue IOP to promote gains and increase mood stability. Eye Contact:: Good Motor Activity:: Appropriate Appearance:: Neat Speech:: Appropriate Mood:: Euthymic Affect:: Congruent - smiling from positive feedback made by peers Thoughts:: Linear, No evidence of hallucinations/delusions noted Staff Interventions:: Therapist facilitated activity in which group members were given the task to identify personal pitfalls and what keeps them stuck from moving past the pitfall. Therapist provided group members with the homework assignment of identifying strategies that can help them overcome pitfalls.
--- NOTE | 2017-06-15 13:35 | BH.SGPN_ITS ---
Service Group Progress Note - Session Psychotherapy Session #2 Date Open:: 06/15/17 - 6 group members Time Started:: 10:18 Time Stopped:: 11:08 Targeted Problem #:: 1 Type of Group:: Illness Management Goal of Group:: To increase understanding of pitfalls and impact can have on mental health. Client Response/Progress/Benefit:: Client responded well to session, quiet, but participating when prompted. Client appeared to connect with the quote, sharing , the easy path is what we've always done. Client stated pitfalls are things that keep one off track and stray from the right path. Client shared depression and anxiety can make one vulnerable to pitfalls because it makes you think negatively. Client reported pitfalls can lead to reduced self-esteem, self- sabotage, and increase mental health symptoms. Client appeared to benefit from gaining awareness of how pitfalls impact mental health. Progress noted in client 's improved mood and generalization of healthy coping skills, but can continue to benefit from challenging negative core beliefs. Eye Contact:: Good Motor Activity:: Appropriate Appearance:: Neat Speech:: Appropriate Mood:: Euthymic Affect:: Constricted Thoughts:: Linear, No evidence of hallucinations/delusions noted Staff Interventions:: Therapist facilitated discussion about pitfalls and assisted group in identifying common pitfalls that can set you back. Therapist led group in an activity to help group understand impact pitfalls can have on oneself and identify strategies that could help you get back on the right path. Therapist provided support by using active listening and providing feedback. Psychotherapy Session #3 Date Open:: 06/15/17 - 6 group members Time Started:: 11:16 Time Stopped:: 12:15 Targeted Problem #:: 1 Type of Group:: Functional Skills Development Goal of Group:: To identify personal pitfalls and what keeps them stuck from moving forward. Client Response/Progress/Benefit:: Client responded well to session, active participant. Client connected the activity to life sharing ?lack of awareness will impact our communication with supports.? Client identified personal pitfalls of hers as letting self-care go, ?closing out the world,? low self- esteem, and catastrophizing. Client helped the group identify strategies to overcome and prevent pitfalls such as establishing a crisis plan, communicating with supports, and challenging negative thoughts. Client appeared to benefit from increasing awareness of personal pitfalls and identifying strategies to overcome them. Progress noted in client's increased self-confidence as she has increased what she shares with peers. Client to continue IOP to promote gains and increase mood stability. Eye Contact:: Good Motor Activity:: Appropriate Appearance:: Neat Speech:: Appropriate Mood:: Euthymic Affect:: Congruent - smiling from positive feedback made by peers Thoughts:: Linear, No evidence of hallucinations/delusions noted Staff Interventions:: Therapist facilitated activity in which group members were given the task to identify personal pitfalls and what keeps them stuck from moving past the pitfall. Therapist provided group members with the homework assignment of identifying strategies that can help them overcome pitfalls.
--- NOTE | 2017-06-17 10:52 | BH.SGPN ---
Service Group Progress Note - Session Psychotherapy Session #1 Date Open:: 18 - 7 participants Time Started:: 09:05 Time Stopped:: 10:10 Targeted Problem #:: 1 Type of Group:: Process Goal of Group:: The goal of today's group was to check-in with client's mood, stressors, and positives, review homework and introduce topic for the day. Client Response/Progress/Benefit:: Client responded well to session, at first appearing withdrawn, but then engaging with peers. Client reports feeling agitated today but is unsure of the trigger. Client stated she is hoping to find peace and calm from group today to help combat her agitation. Client shared she has been keeping busy working on her 30-day plan which includes contacting one person via phone call. Client stated she would also like to get into meditation, and was provided ideas by group and therapist. Client reported belief she is progressing, but continues to struggle with negative thinking and challenging cognitive distortions at times. Client recognized it will take patience and practice to be able to more effectively challenge negative thoughts. Client appeared to benefit from receiving coping skill ideas from peers. Progress noted in client's reduced depression and anxiety, but can continue to benefit from ongoing thought challenging and reframing core beliefs. Eye Contact:: Fair Motor Activity:: Slowed Appearance:: Casual Speech:: Soft Mood:: Irritable Affect:: Constricted Thoughts:: Linear, No evidence of hallucinations/delusions noted Staff Interventions:: Therapist used open-ended questions to elicit information about client's current stressors and mood state. Therapist was supportive by using active listening and reflection.
--- NOTE | 2017-06-20 09:12 | BH.TPR ---
Treatment Plan Review Date of Admission:: 05/23/17 Date of Treatment Plan Review:: 06/20/17 Admitting Diagnoses:: Bipolar 2 disorder F 31.81 Current Diagnoses:: Bipolar 2 disorder F 31.81 Patient's Response to Treatment:: Client has responded well to treatment so far as evidenced by her consistent attendance and active participation in group and individual sessions. Client reports reduced intensity of depression and anxiety through use of healthy coping skills including daily goal setting, positivity tracking, and challenging negative thoughts. Client provides good insight to group discussion and has been receptive to learning various techniques. Client has increased her self-esteem and confidence as shown by her improved engagement in group and disclosure of personal barriers. Client has been consistent with generalizing coping skills into her daily life and utilizing positive supports. However, client reports ongoing difficulty with challenging negative thoughts and continues endorse some isolative behaviors. Status of Current Problems and Symptoms: Client reports ongoing negative thinking and low self-esteem that continues to contribute to isolation and not reaching out to supports. Client also reports a depressed mood with reduced intensity. Problem #1 Problem Name:: Pt. will increase mood stability and reduce depressive symptoms Status of Goals:: Client has not yet achieved this goal as she continues to report negative thinking and low self-esteem. However, client has shown significant progress with reducing isolation, identifying positives, and accomplishing small daily goals. Client and therapist currently working on challenging negative thoughts, improving confidence, and maintaining progress. Team Recommendations:: Client recommended to continue to work on this treatment goal as she has improved with reducing isolation and reports an improved mood, but continues to report ongoing negative self-talk and negative core beliefs. Client recommended to continue to work on her 30 day plan to increase social support and reduce isolation. Problem #2 Problem Name:: Pt. will reduce frequency, intensity, and duration of anxiety Status of Goals:: Client has not yet accomplished this goal as she reports ongoing negative thinking and some avoidance behaviors. Significant progress noted as client has reported increased use of coping skills to reduce avoidance behaviors and challenge cognitive distortions. Client and therapist currently working on challenging cognitive distortions, recognizing anxiety triggers and false alarms, and increasing self-confidence. Team Recommendations:: Client recommended to continue working on treatment goal as she has demonstrated progress in identifying warning signs, and utilizing calming coping skills to reduce anxiety, but continues to struggle with some avoidance behaviors and negative thoughts. Client also recommended to follow up with outpatient counseling at [facility].
--- NOTE | 2017-06-20 13:51 | BH.SGPN ---
Service Group Progress Note - Session Psychotherapy Session #2 Date Open:: 06/20/17 Time Started:: 10:25 Time Stopped:: 11:15 Targeted Problem #:: 1 Type of Group:: Illness Management Goal of Group:: To increase understanding how positive and negative forces in life can impact balance in life. Client Response/Progress/Benefit:: Client receptive to session, sharing thoughts with group and listening to others. Client related to others comments that personal growth will not occur overnight, one has to put forth the effort in order for that to happen. During activity client struggled with putting self down by discouting her idea by saying nevermind, it probably won't work. With encouragement client would share her ideas. When processing client connected importance of accepting help from others and using healthy coping skills to balance both negative and positive forces. Client seemed to benefit from increasing awareness of impact negative forces can have on progress as well as encouragement by others to share her ideas during activity. Client to continue IOP level of care to maintain gains, improve self-esteem, and prevent decompensation. Eye Contact:: Good Motor Activity:: Appropriate Appearance:: Casual Speech:: Appropriate Affect:: Congruent Thoughts:: Linear, Logical, No evidence of hallucinations/delusions noted Staff Interventions:: Therapist facilitated group discussion about the various forces of life and helped clients connect the impact they have on balance in life. Therapist led group in an experiential activity in which group members had to work together to balance an object and move it to a designated location. Therapist utilized the activity as a tool to process the challenges connected with balancing various forces. Psychotherapy Session #3 Date Open:: 06/20/17 Time Started:: 11:25 Time Stopped:: 12:15 Targeted Problem #:: 1 Type of Group:: Functional Skills Development Goal of Group:: To identify positive and negative forces in life and identify which forces are helping stability and which forces are contributing to instability. Client Response/Progress/Benefit:: Client engaged and active throughout session. Client identified her positive forces to include: her spouse, connecting with supports, engaging in positive activities, getting outside, and exercise. Client reported negative forces to include: being alone, physical limitations, negative thinking, and becoming stagnant. client identified being alone to be the strongest force in her life currently because when alone tends to have more difficulty with applying her healthy skills. Client seemed to benefit from increasing awareness of her positive and negative forces as well as thinking about one step she can take in order to start balancing her forces to increase stabilization. Eye Contact:: Good Motor Activity:: Appropriate Appearance:: Casual Speech:: Appropriate Mood:: Euthymic Affect:: Congruent Thoughts:: Linear, Logical, No evidence of hallucinations/delusions noted Staff Interventions:: Therapist provided group with an example of a scenario of a person and the individuals positive and negative forces. Therapist provided each group member with a worksheet in which they were to identify five positive and five negative forces in their life. Therapist processed the activity with the group, helping others connect the impact certain forces have on their life balance.
--- NOTE | 2017-06-20 14:58 | BH.SGPN ---
Service Group Progress Note - Session Psychotherapy Session #1 Date Open:: 06/20/17 Time Started:: 09:09 Time Stopped:: 10:19 Targeted Problem #:: 1 Type of Group:: Process - 7 participants Goal of Group:: The goal of today's group was to check-in with client's mood, stressors, and positives, review homework and introduce topic for the day. Client Response/Progress/Benefit:: Client receptive of session and actively engaged in the group. She did well to provide input throughout and was open to feedback from the group. Client discussed feeling somewhat accomplished as she has continued to make healthy babysteps towards her treatment goals. CLient indicated walking a little further and playing the piano longer over the weekend. She shared knowing that this may not be a big deal for others but it is for me. Client at times struggles with disqualifying the positive progress she has made however is beginning to make progress in this area. CLient disclosed to the group that she has finally come to terms with wanting to address her disordered eating habits. She noted that sharing this with the group was really hard but important in beginning to address the issues. CLient benefited from the overwhelming support of the group and indicated that addressing it out loud was a somewhat empowering experience. Recommended continued focus on addressing negative coping mechanisms as well as challenging self-depricating talk. Eye Contact:: Good Motor Activity:: Appropriate Appearance:: Casual Speech:: Appropriate Mood:: Euthymic Affect:: Congruent Thoughts:: Linear, Logical, No evidence of hallucinations/delusions noted Staff Interventions:: Therapist used open-ended questions to elicit information about client's current stressors and mood state. Therapist was supportive by using active listening and reflection.
--- NOTE | 2017-06-23 14:50 | BH.SGPN_ITS ---
Service Group Progress Note - Session Psychotherapy Session #2 Date Open:: 06/23/17 - 6 group members Time Started:: 10:23 Time Stopped:: 11:20 Targeted Problem #:: 1 Type of Group:: Illness Management Goal of Group:: To identify within self what is keeping client trapped from achieving better quality of life. Client Response/Progress/Benefit:: Client responded well to session, active participant. Client connected with the quote sharing, there are external things that stop us, but we sabotage ourselves with guilt. Client identified various stressors in life that keep a person stuck such as depression, social anxiety, low-self esteem, and negative thinking. Client stated it is important to challenge negative thoughts and behaviors in order to break out of a maintenance cycle. Client identified the negative thoughts keeping her stuck such as I'm afraid to face the world, I can't handle this, nothing will get better. Client appeared to benefit from recognizing how these negative thoughts keep client stuck in a depressive cycle. Progress noted in client's improved mood and engagement during group, but can continue to benefit from challenging mistaken beliefs Eye Contact:: Good Motor Activity:: Appropriate Appearance:: Casual Speech:: Appropriate Mood:: Dysthymic Affect:: Constricted Thoughts:: Linear, No evidence of hallucinations/delusions noted Staff Interventions:: Therapist facilitated discussion about what is keeping client?s stuck from moving toward mental wellness. Therapist assisted clients in connecting how thoughts can contribute to keeping clients stuck. Therapist led discussion about barriers clients face from making changes to help one move forward. Therapist provided support by using active listening and giving feedback to others. Psychotherapy Session #3 Date Open:: 06/23/17 - 5 group members Time Started:: 11:30 Time Stopped:: 12:27 Targeted Problem #:: 1 Type of Group:: Functional Skills Development Goal of Group:: To identify what client can do to release self from those things that are trapping them to find more peace and quality in everyday life. Client Response/Progress/Benefit:: Client responded well to session, engaged in discussion. Client selected I'm afraid to face the world as the negative thought keeping client stuck. Client shared when she thinks this she isolates, stays afraid, and becomes more depressed. With group and therapist elicitation, client reframed the thought with the world's not a place that will harm me I can get out more. Client reported challenging the thought increases her self- esteem and would make client more likely to get out of the house. Client appeared to benefit from reframing her negative thought and identifying thought challenge strategies. Client to continue IOP to promote mood stability and coping skill consistency. Eye Contact:: Good Motor Activity:: Appropriate Appearance:: Casual Speech:: Appropriate Mood:: Euthymic Affect:: Constricted Thoughts:: Linear, No evidence of hallucinations/delusions noted Staff Interventions:: Therapist used examples of maintenance cycles to help clients gain awareness of how negative thinking is keeping clients stuck. Nathan lloyd facilitated discussion about different strategies for challenging negative thoughts, assisting clients in connecting how the strategies could benefit them. Therapist provided clients with homework to focus on one thing that is keeping them stuck and identify small steps to start moving towards mental wellness.
--- NOTE | 2017-06-23 14:51 | BH.MDN ---
Multi-Disciplinary Note - Note 30-min Individual Time Started:: 09:04 Date: 06/23/17 Purpose of session/treatment goals addressed:: The purpose of this session was to address client's current stressors, symptoms, and use of coping skills. Another goal was to identify and challenge negative thoughts keeping client stuck. Other topics included: body positivity and aftercare. Eye Contact:: Good Motor Activity:: Appropriate Appearance:: Casual Speech:: Appropriate Mood:: Dysthymic Affect:: Constricted Thoughts:: Linear, No evidence of hallucinations/delusions noted Staff Interventions:: Therapist used active listening and open-ended questions to explore client's current stressors, symptoms, and use of coping skills. Therapist helped client process emotions, normalize setbacks, and identify accomplishments in progress. Therapist educated client on maintenance cycles for anxiety and depression and discussed ways to reframe thoughts. Therapist and client discussed online support groups for binge-eating and body positivity. Therapist provided client an article and worksheet to complete for homework to challenge negative thinking and increase body positivity. Therapist and client discussed the benefits of having an outpatient therapist who specializes in eating disorders. Client Response:: Client responded well to session, open to meeting with therapist. Client reported overall, she has been doing well and seeing progress, but client had a rough few days due to her aunt passing away. Client stated, it wasn't even about her dying, it was not feeling comfortable with my clothes and body at the . Client shared she did not attend the because she did not have nice clothes to wear which created depression, anxiety, and self-hate. Client reported her was pushing me to go which further increased client's frustration with herself and the situation. Client and therapist discussed the overcoming setbacks and how to challenge negative self-talk. Client stated, I know I didn't handle it well, but I'm ready to get back on track. With therapist elicitation, client recognized she has not lost progress, but rather learned about herself which will help client overcome future challenges. Client shared she challenged her thinking and talked with her to improve her mood. Client receptive to exploring online binge-eating disorder groups, identifying positive personal body traits, and reading a body positivity blog for homework. Risks/Concerns:: Client denies suicidal ideation, plan, and intent as of 06/23/17. Client reports recognizing progress which is a protective factor. Progress Toward Goals/Plan:: Client demonstrating progress towards treatment goals as shown by her report of reduced depression, anxiety, and increased application of healthy coping skills. Client reports an overall improved mood and increased ability to reframe cognitive distortions. However, client continues to struggle with negative thoughts regarding weight and low self-esteem. Client to continue IOP to promote gains and follow up with new outpatient provider next week for individual counseling. Client reported having an eating disorder specific counselor will not work out logically due to transportation, but client was open to exploring online support groups. Time Stopped:: 09:25
--- NOTE | 2017-06-24 12:25 | BH.SGPN ---
Service Group Progress Note - Session Psychotherapy Session #1 Date Open:: 06/24/17 Time Started:: 09:10 Time Stopped:: 10:00 Type of Group:: Process - 6 group members Goal of Group:: The goal of today's group was to check-in with client's mood, stressors, and positives, and review homework. Client Response/Progress/Benefit:: Pt spoke when prompted however was quiet throughout most of group. Pt was attentive. Emotion for today is nervous and agitated. Shared that while driving into group today she and her encountered construction which causes significant anxiety for pt. Reports that she is still coming down from this. Discussed the extent that driving has led to anxiety in the past year. Was positive about the rest of today. Reports that she is planning on starting a diet plan next week and after talking with her therapist she is going to write a letter to her future self about the struggles and emotions she will encounter. Believes this will be helpful when she struggles with diet. Added that she has noticed decreased depressive episodes and increased energy since starting the program. Benefited from group support and feedback. Continues to be motivated to make postive changes in her life. Will continue in IOP to maintain gains, prevent decompensation, and improve daily functioning. Staff Interventions:: Therapist used open-ended questions to elicit information about client's current stressors and mood state. Therapist was supportive by using active listening and reflection.
--- NOTE | 2017-06-24 13:53 | PN_ITS ---
Progress Note Patient is seen in follow-up for bipolar 2 disorder, generalized anxiety disorder. History is been obtained per interview with patient, discussion with staff, review of chart. Case discussed with treatment team. Chief complaint-depression and anxiety-better each day. Interim history Moderate depressive symptoms persist but of decreased intensity over the past 3 weeks. Reports increased energy and participation in activities outside of the house. Increased focus on structuring time. Participating in 30 day plan. Reports that she is attempting to keep occupied with both productive and enjoyable activities. Playing the piano and [employer]. Increased interest in self-care. Appetite normal. Denies nausea vomiting or diarrhea. Planning to start meal plan next week. Denies irritability or anger. Mild ruminative anxiety but decreased intensity. Sleeping from 11:30 PM to 5 AM. No suicidal or homicidal ideation. No symptoms consistent with psychosis. Compliant with medications including Paxil 37.5 mg daily, Rexalti 1 mg daily, and trazodone 100 mg nightly. Has not needed Klonopin within the past 2 weeks. Denies adverse effects to medications. No evidence of EPS. Mental status exam Alert and oriented . No acute distress. Ambulatory with normal gait and station. Appears stated age. Casually dressed and groomed. Appropriate hygiene. Cooperative with interview. Good eye contact. No psychomotor agitation or retardation. Mood depressed improved. Affect congruent. Speech is clear and with regular rate and rhythm. Language fluent. Thought process organized. Associations logical. Thought content significant for ruminative anxiety and themes of depression. No suicidal or homicidal ideation related or detected.. No symptoms consistent with psychosis noted or detected. Immediate recent and remote memory grossly intact. Attention and concentration are fair. Estimated intelligence and fund of knowledge average. Judgment and insight improving. Diagnosis Bipolar 2 disorder Generalized anxiety disorder Hypothyroidism Cardiac arrhythmia Plan Continue IOP as the structured setting is necessary to maintain gains and prevent decompensation. Patient will likely benefit from ongoing IOP treatment. Risks benefits alternatives of medications discussed with patient. Patient acknowledges understanding. Continue Paxil 37.5 mg daily, Rexalti 1 mg daily, trazodone 100 mg p.o. nightly. Agrees to use Klonopin sparingly on a as needed basis. Started gabapentin 900 mg p.o. 3 times daily by medical service. Uses Imitrex rarely for migraines. Risk of serotonin syndrome discussed. Follow-up with Dr. Virginia Klein. 20 minutes Insight oriented psychotherapy regarding normalized eating and meal plan. Patient acknowledges understanding and is in agreement with plan. Feels able to maintain safety and agrees to seek help or emergency care feeling unsafe to self or others.
--- NOTE | 2017-06-24 14:37 | BH.SGPN ---
Service Group Progress Note - Session Psychotherapy Session #2 Date Open:: 06/24/17 - 7 group members Time Started:: 10:10 Time Stopped:: 11:15 Targeted Problem #:: 1 Type of Group:: Illness Management Goal of Group:: To increase understanding of what conflict is and increase awareness of how group members manage conflict. Client Response/Progress/Benefit:: Client responded well to session, participating when prompted. Client reported having a deep connection from the discussion of the quote, stating, there can be conflict in life and still be peace. Client reported one can have internal and external conflict. Client identified her conflict resolution style as a mix of accommodating and avoidant sharing she will agree with others to keep the peace, avoid confrontation, and let others take charge. Client recognizes her current conflict resolution style negative impacts her mental health as it contributes to low self-esteem and not getting her needs met. Client appeared to benefit from increasing awareness of her personal conflict resolution style. Client seems to be progressing as shown by her generalization of healthy coping skills and reduced intensity of depression and anxiety, but can continues to benefit from challenging negative thoughts. Eye Contact:: Good Motor Activity:: Appropriate Appearance:: Neat Speech:: Appropriate Mood:: Euthymic Affect:: Congruent Thoughts:: Linear, No evidence of hallucinations/delusions noted Staff Interventions:: Therapist facilitated discussion about conflict and conflict resolution. Therapist led group in an activity in which group members had to identify their initial response to conflict and how their response changes based on different situations. Therapist assisted clients with connecting the impact current conflict style has on their mental health. Psychotherapy Session #3 Date Open:: 06/24/17 - 6 group members Time Started:: 11:23 Time Stopped:: 12:13 Targeted Problem #:: 1 Type of Group:: Functional Skills Development Goal of Group:: To identify what contributes positively and negatively to conflict and appropriate ways to manage conflict with others. Client Response/Progress/Benefit:: Client responded well to session, active participant, joking with peers. Client reported it was easy for her to be cooperative and assertive in the activity because she feels respected in the group. Client recognized she can benefit from being more assertive in her daily life when dealing with conflict. Client helped the group identify strategies to improve conflict resolution outside of group such as being open-minded and looking at different perspectives, challenging cognitive distortions, and removing the mask to express true emotions. Client shared she plans to use strategies from today's group to try to stay true to my needs and communicate more effectively. Client appeared to benefit from learning various conflict resolution strategies. Client to continue IOP to promote mood stability and coping skills maintenance. Eye Contact:: Good Motor Activity:: Appropriate Appearance:: Neat Speech:: Appropriate Mood:: Euthymic Affect:: Congruent Thoughts:: Linear, No evidence of hallucinations/delusions noted Staff Interventions:: Therapist facilitated group activity in which group members were provided with materials and had to eliminate certain items with consensus from group. Therapist processed activity, helping clients connect throughout activity strategies each person used to manage conflict. Therapist led discussion about what contributes to conflict in a positive or negative manner. Therapist facilitated discussion about conflict resolution strategies and provided group member with a handout about effective ways to manage conflict.
--- NOTE | 2017-06-24 14:40 | BH.SGPN_ITS ---
Service Group Progress Note - Session Psychotherapy Session #2 Date Open:: 06/24/17 - 7 group members Time Started:: 10:10 Time Stopped:: 11:15 Targeted Problem #:: 1 Type of Group:: Illness Management Goal of Group:: To increase understanding of what conflict is and increase awareness of how group members manage conflict. Client Response/Progress/Benefit:: Client responded well to session, participating when prompted. Client reported having a deep connection from the discussion of the quote, stating, ?there can be conflict in life and still be peace.? Client reported one can have internal and external conflict. Client identified her conflict resolution style as a mix of accommodating and avoidant sharing she will agree with others to keep the peace, avoid confrontation, and let others take charge. Client recognizes her current conflict resolution style negative impacts her mental health as it contributes to low self-esteem and not getting her needs met. Client appeared to benefit from increasing awareness of her personal conflict resolution style. Client seems to be progressing as shown by her generalization of healthy coping skills and reduced intensity of depression and anxiety, but can continues to benefit from challenging negative thoughts. Eye Contact:: Good Motor Activity:: Appropriate Appearance:: Neat Speech:: Appropriate Mood:: Euthymic Affect:: Congruent Thoughts:: Linear, No evidence of hallucinations/delusions noted Staff Interventions:: Therapist facilitated discussion about conflict and conflict resolution. Therapist led group in an activity in which group members had to identify their initial response to conflict and how their response changes based on different situations. Therapist assisted clients with connecting the impact current conflict style has on their mental health. Psychotherapy Session #3 Date Open:: 06/24/17 - 6 group members Time Started:: 11:23 Time Stopped:: 12:13 Targeted Problem #:: 1 Type of Group:: Functional Skills Development Goal of Group:: To identify what contributes positively and negatively to conflict and appropriate ways to manage conflict with others. Client Response/Progress/Benefit:: Client responded well to session, active participant, joking with peers. Client reported it was easy for her to be cooperative and assertive in the activity because she feels respected in the group. Client recognized she can benefit from being more assertive in her daily life when dealing with conflict. Client helped the group identify strategies to improve conflict resolution outside of group such as being open-minded and looking at different perspectives, challenging cognitive distortions, and ? removing the mask? to express true emotions. Client shared she plans to use strategies from today's group to ?try to stay true to my needs? and communicate more effectively. Client appeared to benefit from learning various conflict resolution strategies. Client to continue IOP to promote mood stability and coping skills maintenance. Eye Contact:: Good Motor Activity:: Appropriate Appearance:: Neat Speech:: Appropriate Mood:: Euthymic Affect:: Congruent Thoughts:: Linear, No evidence of hallucinations/delusions noted Staff Interventions:: Therapist facilitated group activity in which group members were provided with materials and had to eliminate certain items with consensus from group. Therapist processed activity, helping clients connect throughout activity strategies each person used to manage conflict. Therapist led discussion about what contributes to conflict in a positive or negative manner. Therapist facilitated discussion about conflict resolution strategies and provided group member with a handout about effective ways to manage conflict.
--- NOTE | 2017-06-27 10:31 | BH.SGPN ---
Service Group Progress Note - Session Psychotherapy Session #1 Date Open:: 06/27/17 - 6 group members Time Started:: 09:03 Time Stopped:: 10:10 Targeted Problem #:: 1 Type of Group:: Process Goal of Group:: The goal of today's group was to check-in with client's mood, stressors, and positives, review homework and introduce topic for the day. Client Response/Progress/Benefit:: Client responded well to session, providing supportive statements to peers. Client reports feeling apprehensive today as she has been doing well coping with her mental health, but continues to struggle with managing her physical limitations. Client shared the weekend was pretty good, client recognized her progress with managing triggers, implementing healthy coping skills, and reaching out to supports. Client reported Mother's Day is normally really hard for me, but she stated being proud of how she coped with her emotions and did not fall back to old ways. Client appeared to benefit from reflecting on progress and receiving supportive statements from peers. Progress noted in client's generalization of healthy coping skills and improved mood, but can continue to benefit from maintenance. Eye Contact:: Good Motor Activity:: Appropriate Appearance:: Neat Speech:: Appropriate Mood:: Anxious Affect:: Congruent Thoughts:: Linear, No evidence of hallucinations/delusions noted Staff Interventions:: Therapist used open-ended questions to elicit information about client's current stressors and mood state. Therapist was supportive by using active listening and reflection.
--- NOTE | 2017-06-27 13:03 | BH.SGPN ---
Service Group Progress Note - Session Psychotherapy Session #2 Date Open:: 06/27/17 Time Started:: 10:21 Time Stopped:: 11:22 Targeted Problem #:: 1 Type of Group:: Illness Management - 6 participants. Goal of Group:: To increase understanding of the impact viewing situations as impossible can have on our mental health. Client Response/Progress/Benefit:: Client did well to remain an active participant and was well engaged in both the activity and discussion portions of the group. Client discussed with fellow participants the impact that an impossible mindset could have on managing ones mental-health symptoms and ability to view potential difficult situations as new opportunities. Client discussed that she often finds herself falling into a mindset in which she views the current task at hand as insurmountable. She benefited from processing the activity portion in which clients were challenged to work together to complete what appeared to be an impossible task. Identified that in the activity as well as in her own life challenging [id number] thinking and health doubt is crucial in making progress. Client is displaying progress in her ability to consistently internalize and apply treatment concepts daily life. Continued to improve consistent use. Eye Contact:: Good Motor Activity:: Appropriate Appearance:: Casual Speech:: Appropriate Mood:: Euthymic, Anxious Affect:: Congruent Thoughts:: Linear, Logical Staff Interventions:: Therapist facilitated discussion about what it means to overcome what seems impossible. Therapist led group in an activity that would initially seem impossible to complete, but once group members looked at the problem in a different way they would be able to see alternative solutions. Therapist utilized the activity as a tool to discuss overcoming those situations that seem impossible to get through. Psychotherapy Session #3 Date Open:: 06/27/17 Time Started:: 11:28 Time Stopped:: 12:18 Targeted Problem #:: 1 Type of Group:: Functional Skills Development - 6 participants. Goal of Group:: To identify personal barriers that get in the way of accomplishing tasks and identify internal and external resources to help overcome difficult situations. Client Response/Progress/Benefit:: Client again did well to remain consistently engaged in the discussion hand. He worked with fellow participants to define internal and external barriers and supports as well as identify barriers commonly used. Client shared that in her own life she often falls into more internal barriers such as disqualifying the positive, self-doubt, and feeling overwhelmed. Client benefited from working with the group to identify potential internal and external supports she may use to combat these barriers. Client indicated plans to increased use of challenging negative thinking and learning to review past failure in a more positive light. Client indicates trying to challenge her perspective on failure in order to overcome self doubt. Displaying progress in her ability to identify and challenge negative thinking patterns. Would benefit from continued IOP to maintain stability and further consistency of thought challenging and small goal setting skills Eye Contact:: Good Motor Activity:: Appropriate Appearance:: Casual Speech:: Appropriate Mood:: Euthymic Affect:: Congruent Thoughts:: Linear, Logical, No evidence of hallucinations/delusions noted Staff Interventions:: Therapist facilitated discussion about internal and external resources and helped clients connect various internal resources they use. Therapist provided group members with a handout that gave information about various external resources the clients could utilize to get support. Therapist gave clients a worksheet in which they were asked to identify several barriers that get in their way to overcoming difficult situations. They also were asked to identify several internal and external resources they could use when needed.
--- NOTE | 2017-06-29 10:21 | BH.MDN ---
Multi-Disciplinary Note - Note 60-min Individual Time Started:: 09:11 Date: 06/29/17 Purpose of session/treatment goals addressed:: The purpose of this session was to process client's emotions, thoughts, concerns about her upcoming discharge and develop strategies to manage anxiety and reduce negative thinking. Another goal was to challenge unrealistic expectations and increase self-esteem. Eye Contact:: Good Motor Activity:: Appropriate Appearance:: Neat Speech:: Appropriate Mood:: Anxious Affect:: Full Thoughts:: Linear, No evidence of hallucinations/delusions noted Staff Interventions:: Therapist used open-ended questions to explore client's discharge concerns and helped client process her thoughts and emotions. Therapist provided emotional support and validation to normalize client's feelings and thoughts about discharge. Therapist assisted client in identifying activities and coping strategies to fill client's time, provide mental health support, and reduce negative thinking and anxiety. Therapist gently challenged client on cognitive distortions and used strengths perspective to empower client on the progress she has made. Therapist provided client various resources for mental health support and relaxation strategies. Client Response:: Client responded well to session, open to discussing concerns. Client shared I have to be honest I'm feeling overwhelmed and anxious about leaving. Client stated she had negative thoughts this morning of what if I go back to the person I was before which resulted in client having a crying episode. Client reported feeling like she had a setback, but after processing, recognized that it was not a setback and her feelings are normal. 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 Client stated she is most anxious about filling her time and would like to work on developing a routine. Client reflected on progress, sharing I have been doing more around the house and I've been getting out a little more. Client and therapist discussed client's daily schedule and interests. Client helped therapist brainstorm activities client could engage in such as volunteering, playing piano, making a recipe book, going to [facility], and talking with supports. Client stated she would be interested in going to [facility] in [place] for mental health support and potentially volunteer at a jail playing piano. Client shared I feel much better after establishing activities to fill her time. Client also wanted to learn more about relaxation techniques to reduce anxiety such guided imagery, progressive muscle relaxation, and chair yoga. Client had reported in previous sessions wanting support for binge-eating and therapist provided client with podcasts on the topic. Client stated the podcasts would be great as she is not yet ready to join a group or see an eating disorder therapist. Client was receptive to discussion on self-advocacy, realistic expectations, and daily thought challenging. Risks/Concerns:: Client denies suicidal ideation, plan, and intent as of 06/29/17. Progress Toward Goals/Plan:: Client has shown significant progress towards treatment goals as shown by her report of reduced intensity of anxiety and depression as well as reduced isolation. Client to discharge from [facility] on Tuesday07/01/17 and follow up with her outpatient therapist at [facility]. Client also willing to follow up with [facility] support groups in [facility] and start volunteering at a jail. Time Stopped:: 10:06
--- NOTE | 2017-06-29 10:58 | BH.MDN_ITS ---
Multi-Disciplinary Note - Note 60-min Individual Time Started:: 09:11 Date: 06/29/17 Purpose of session/treatment goals addressed:: The purpose of this session was to process client's emotions, thoughts, concerns about her upcoming discharge and develop strategies to manage anxiety and reduce negative thinking. Another goal was to challenge unrealistic expectations and increase self-esteem. Eye Contact:: Good Motor Activity:: Appropriate Appearance:: Neat Speech:: Appropriate Mood:: Anxious Affect:: Full Thoughts:: Linear, No evidence of hallucinations/delusions noted Staff Interventions:: Therapist used open-ended questions to explore client's discharge concerns and helped client process her thoughts and emotions. Therapist provided emotional support and validation to normalize client's feelings and thoughts about discharge. Therapist assisted client in identifying activities and coping strategies to fill client's time, provide mental health support, and reduce negative thinking and anxiety. Therapist gently challenged client on cognitive distortions and used strengths perspective to empower client on the progress she has made. Therapist provided client various resources for mental health support and relaxation strategies. Client Response:: Client responded well to session, open to discussing concerns. Client shared I have to be honest I'm feeling overwhelmed and anxious about leaving. Client stated she had negative thoughts this morning of what if I go back to the person I was before which resulted in client having a crying episode. Client reported feeling like she had a setback, but after processing, recognized that it was not a setback and her feelings are normal. 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 Client stated she is most anxious about filling her time and would like to work on developing a routine. Client reflected on progress, sharing I have been doing more around the house and I've been getting out a little more. Client and therapist discussed client's daily schedule and interests. Client helped therapist brainstorm activities client could engage in such as volunteering, playing piano, making a recipe book, going to [facility], and talking with supports. 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 Client shared I feel much better after establishing activities to fill her time. Client also wanted to learn more about relaxation techniques to reduce anxiety such guided imagery, progressive muscle relaxation, and chair yoga. Client had reported in previous sessions wanting support for binge-eating and therapist provided client with podcasts on the topic. Client stated the podcasts would be great as she is not yet ready to join a group or see an eating disorder therapist. Client was receptive to discussion on self-advocacy, realistic expectations, and daily thought challenging. Risks/Concerns:: Client denies suicidal ideation, plan, and intent as of . Progress Toward Goals/Plan:: Client has shown significant progress towards treatment goals as shown by her report of reduced intensity of anxiety and depression as well as reduced isolation. Client to discharge from [facility] on Tuesday07/01/17 and follow up with her outpatient therapist at [facility]. Client also willing to follow up with [facility] support groups in [facility] and start volunteering at a detention. Time Stopped:: 10:06
--- NOTE | 2017-07-01 10:36 | BH.SGPN ---
Service Group Progress Note - Session Psychotherapy Session #1 Date Open:: 07/01/17 - 4 group members Time Started:: 09:05 Time Stopped:: 10:05 Targeted Problem #:: 1 Type of Group:: Process Goal of Group:: The goal of today's group was to check-in with client's mood, stressors, and positives, review homework and introduce topic for the day. Client Response/Progress/Benefit:: Client responded well to session, providing supportive statements. Client reports feeling excited today as it is her last day of IOP. Client shared she has some mixed emotions about discharge as she will miss the group, but recognizes she has made great strides in her mental health recovery. Client reflected on her progress sharing, my first day here I was so depressed.. I didn't even want to get dressed or out of bed. Client stated now she is cleaning, getting out of the house, reaching out to supports, and identifying her strengths. Client shared she has awareness that some days will be more challenging than others, but setbacks do not have to keep client stuck. Client reported she is not fully back to her old self but she is getting there through daily implementation of coping skills. Client was receptive to words of encouragement given by peers and therapist. Client appeared to benefit from receiving support from group and reflecting on her progress. Eye Contact:: Good Motor Activity:: Appropriate Appearance:: Neat Speech:: Appropriate Mood:: Euthymic Affect:: Full Thoughts:: Linear, No evidence of hallucinations/delusions noted Staff Interventions:: Therapist used open-ended questions to elicit information about client's current stressors and mood state. Therapist was supportive by using active listening and reflection.
--- NOTE | 2017-07-01 10:42 | BH.AFTERPLAN ---
Aftercare Plan - Demographics Treatment End Date:: 07/01/17 Psychiatrist:: Olga Villegas Psychiatrist Office #:: [id number] [facility]/IOP Therapist:: Shanita Tripathi Therapist Phone #:: [phone] - Medications Home Medications: Home Medications Brexpiprazole [Rexulti] 1 mg PO DAILY 05/27/17 Clonazepam [Klonopin] 0.5 mg PO BID PRN PRN 05/27/17 Diltiazem [Cardizem] 30 mg PO BID 05/27/17 Hydrocodone Bitart/Apap 5-325 [Sage 5MG-325MG] 1 tablet PO Q6H PRN PRN 05/27/17 Levothyroxine [Synthroid] 250 mcg PO DAILY 05/27/17 Omeprazole [Prilosec] 10 mg PO DAILY 05/27/17 Paroxetine HCl [Paroxetine ER] 37.5 mg PO DAILY 05/27/17 Trazodone HCl 100 mg PO QHS 05/27/17 Gabapentin [Neurontin] 100 mg PO 4X/DAY 06/03/17 - Plan Details Progress/Aftercare Plan Details:: You have shown tremendous progress with reducing depression and anxiety by implementing the coping strategies learned in group and individual sessions. You have improved with challenging negative thoughts, setting realistic goals, and reducing isolation. You have stepped out of your comfort zone which has increased your self-esteem, supports, and allowed you to advocate for your needs. You have significantly improved awareness of warning signs, triggers, and healthy coping skills. You have increased motivation, improved mood stability, and reignited your passion for music and piano. You have shown dedication and discipline which has helped you reach your short-term goals and start working towards your long-term goals. Strategies for Success:: 1. Review group notes daily if you need to! Think back on powerful or funny moments from group. 2. Write out daily goal and plan, even on tough days. 3. COMMUNICATE! Your needs, emotions, and process how you feel. 4. Take time for self-care play the PIANO! 5. Stick with exercising and your diet! Be content with your progress! 6. USE SELF-COMPASSION! treat yourself like you would treat a friend, don't diagnostic medical sonographer your emotions, let them come and go. 7. Thoughts are just thoughts! challenge the negative ones! 8. Be aware of your cognitive distortions and challenge them!! 9. writing down the reasons why the healthy coping skill work to help us overcome bumps in the road. 10. POSITIVE SELF-TALK!! 11. Give yourself credit! Try to do this once a day, use your daily accomplishments! 12. Start writing in a journal! - Appointments Appointments/Referrals to Other Services:: 1. Jodi at [facility] 07/05/17. 2. Dr. Klein at [facility] 07/19/17. 3. [facility] in [place] to start attending support groups.
--- NOTE | 2017-07-01 10:44 | BH.DS_ITS ---
Discharge Summary - Demographics Date of Admission:: 05/23/17 Discharge Date: 07/01/17 Presenting Problems at Admission:: Client, who was referred by Dr. Klein, has a history of bipolar 2 and sought services at [facility] due to worsening depression and anxiety. At admission, client reported her symptoms have been predominantly depressed over the past several years with her depression worsening over the past few months. Client endorsed a depressed mood with anhedonia, decreased energy, increased appetite, isolation, negative thoughts of self, hopelessness, passive thoughts of , and difficulty concentrating. At admission client stated her depression and anxiety were preventing client from functioning at her baseline. Discharge Diagnoses:: Bipolar 2 disorder F 31.81; Generalized anxiety disorder Reason for Discharge:: Client has made significant progress in reducing symptoms of depression and anxiety and no longer meets criteria for [facility] level of care. - Treatment Progress During Treatment & Response: Client appeared to respond well to treatment as shown by her consistent attendance, participation in group discussions, positive engagement with peers, and implementation of healthy coping skills. While in the program client demonstrated significant progress in reducing isolation, increasing awareness of negative maintenance cycles, challenging negative thinking, and reducing depressive symptoms. Client reported an improved mood, increased energy, and increased functioning. At discharge client stated she had been playing piano again, getting out of the house, cleaning, and reaching out to supports. Client also showed progress with increasing self-esteem as she had kept an accomplishment log, improved with challenging cognitive distortions, increased assertive communication, and reported utilizing calming coping skills. Client reported I'm starting to get the old me back. Issues Still to be Addressed:: Client has demonstrated significant progress with reducing anxiety and depression, but can continue to benefit from ongoing CBT work challenging cognitive distortions and reframing core beliefs. Client did well while in the program when prompted with reframing negative thoughts and identifying positives, but there is a concern post discharge client will forget to utilize internal thought challenging coping skills. Client can continue to benefit from ongoing reinforcement of healthy coping skills learned in [facility], daily goal setting, and strategies to improve core beliefs. Client shared she would eventually like to work more on her binge-eating, and has started utilizing online support groups. Discharge Recommendations/Instructions:: Client recommended to follow up with her outpatient providers at [facility] for outpatient counseling and psychiatry. Client has an appointment with her outpatient therapist tomorrow, 07/05/17, and an appointment with Dr. Klein on 07/19/17. Client also recommended to follow up with volunteering at a local long-term and attending a support group at the [facility]. Discharge Handout: Complete Discharge Handout with client on aftercare options and continuity of care.
--- NOTE | 2017-07-01 16:03 | BH.SGPN ---
Service Group Progress Note - Session Psychotherapy Session #2 Date Open:: 07/01/17 Time Started:: 10:20 Time Stopped:: 11:10 Targeted Problem #:: 1 Type of Group:: Illness Management Goal of Group:: To increase understanding of what strengths are and identify individual strengths. Client Response/Progress/Benefit:: Pt contributed to discussion and listened attentively to others. Pt connected with others about the difficulty of being able to identify and recognize one's personal strengths. Pt reported it is much easier for her to identify what she isn't good at versus her strengths. 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 Pt seemed to benefit from increasing awareness of her strengths. Eye Contact:: Good Motor Activity:: Appropriate Appearance:: Casual Speech:: Appropriate Mood:: Euthymic, Anxious Affect:: Congruent Thoughts:: Linear, Logical, No evidence of hallucinations/delusions noted Staff Interventions:: Therapist facilitated discussion about what are strengths and assisted group members in identifying examples of strengths. Therapist led an activity in which group members were given the opportunity to identify five personal strengths. Therapist assisted clients in connecting the importance of recognizing personal strengths. Psychotherapy Session #3 Date Open:: 07/01/17 Time Started:: 11:20 Time Stopped:: 12:15 Targeted Problem #:: 1 Type of Group:: Functional Skills Development Goal of Group:: To identify what gets in their way of recognizing and utilizing their strengths and identifying ways to make strengths easier to access. Client Response/Progress/Benefit:: Pt listened attentively to others and contributed to discussion. Pt worked cooperatively with her partner during challenge activity. Pt connected the importance of accepting support with identifying personal strengths as well as importance of putting more effort into identifying one's strengths since her thoughts tend to go negative. Pt seemed to benefit from group brainstorm of various strategies to help increase recognition of personal strengths. Connected with idea of using visual aids. Pt noted her progress since entering IOP since today was her last day in IOP. Eye Contact:: Good Motor Activity:: Appropriate Appearance:: Casual Speech:: Appropriate Mood:: Euthymic, Anxious Affect:: Congruent Thoughts:: Linear, Logical, No evidence of hallucinations/delusions noted Staff Interventions:: Therapist utilized an activity as a tool in helping client?s recognize the things that can get in their way from utilizing their strengths. Therapist processed the activity, helping others connect challenges that keep them from recognizing and using their strengths. Therapist provided support by using active listening and providing feedback.
--- NOTE | 2017-07-07 11:04 | BH.SGPN_ITS ---
Service Group Progress Note - Session Psychotherapy Session #2 Date Open:: 07/01/17 Time Started:: 10:20 Time Stopped:: 11:10 Targeted Problem #:: 1 Type of Group:: Illness Management Goal of Group:: To increase understanding of what strengths are and identify individual strengths. Client Response/Progress/Benefit:: Pt contributed to discussion and listened attentively to others. Pt connected with others about the difficulty of being able to identify and recognize one's personal strengths. Pt reported it is much easier for her to identify what she isn't good at versus her strengths. 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 Pt seemed to benefit from increasing awareness of her strengths. Eye Contact:: Good Motor Activity:: Appropriate Appearance:: Casual Speech:: Appropriate Mood:: Euthymic, Anxious Affect:: Congruent Thoughts:: Linear, Logical, No evidence of hallucinations/delusions noted Staff Interventions:: Therapist facilitated discussion about what are strengths and assisted group members in identifying examples of strengths. Therapist led an activity in which group members were given the opportunity to identify five personal strengths. Therapist assisted clients in connecting the importance of recognizing personal strengths. Psychotherapy Session #3 Date Open:: 07/01/17 Time Started:: 11:20 Time Stopped:: 12:15 Targeted Problem #:: 1 Type of Group:: Functional Skills Development Goal of Group:: To identify what gets in their way of recognizing and utilizing their strengths and identifying ways to make strengths easier to access. Client Response/Progress/Benefit:: Pt listened attentively to others and contributed to discussion. Pt worked cooperatively with her partner during challenge activity. Pt connected the importance of accepting support with identifying personal strengths as well as importance of putting more effort into identifying one's strengths since her thoughts tend to go negative. Pt seemed to benefit from group brainstorm of various strategies to help increase recognition of personal strengths. Connected with idea of using visual aids. Pt noted her progress since entering [facility] since today was her last day in [facility]. Eye Contact:: Good Motor Activity:: Appropriate Appearance:: Casual Speech:: Appropriate Mood:: Euthymic, Anxious Affect:: Congruent Thoughts:: Linear, Logical, No evidence of hallucinations/delusions noted Staff Interventions:: Therapist utilized an activity as a tool in helping client???s recognize the things that can get in their way from utilizing their strengths. Therapist processed the activity, helping others connect challenges that keep them from recognizing and using their strengths. Therapist provided support by using active listening and providing feedback.
--- NOTE | 2017-08-11 10:56 | BH.SGPN_ITS ---
Service Group Progress Note - Session Psychotherapy Session #2 Date Open:: 06/29/17 Time Started:: 10:20 Time Stopped:: 11:15 Targeted Problem #:: 1 Type of Group:: Illness Management Goal of Group:: To increase understanding of what boundaries are and the different ways of setting boundaries (permeable, rigid, and flexible). Another goal was increase self-awareness of current boundaries. Client Response/Progress/Benefit:: Client active participant AEB client contributing to discussion and listening attentively to others. Client connected with quote that fear of disappointing others contributes to her not setting needed boundaries. Client able to identify importance of setting healthy boundaries. Tonny noted having flexible boundaries is something to strive for so she can improve her relationships as well as feel empowered. Client seemed to benefit from learning about the different styles of setting boundaries. Eye Contact:: Good Motor Activity:: Appropriate Appearance:: Neat Speech:: Appropriate Mood:: Euthymic Affect:: Congruent Thoughts:: Linear, Logical, No evidence of hallucinations/delusions noted Staff Interventions:: Therapist facilitated group discussion about defining boundaries. Therapist educated the group about the three different ways of setting boundaries and led discussion about each one. Therapist facilitated activity, asking group members to either draw or create something that represents their current way of setting boundaries. The activity was used as a tool to help increase clients self-awareness of their boundaries. Psychotherapy Session #3 Date Open:: 06/29/17 Time Started:: 11:25 Time Stopped:: 12:15 Targeted Problem #:: 1 Type of Group:: Functional Skills Development Goal of Group:: To identify the importance of boundaries and identifying skills to help increase healthy boundaries. Client Response/Progress/Benefit:: Client alert and oriented, contributing positively to discussion and listened attentively to others. Client connected with the signs of unhealthy boundaries handout which gave her some insight into what she might be doing that is unhelpful. Client shared her castle currently has once entrance in which she now allows a little more people in to her life and is willing to leave. Client noted how much progress she is able to see because if she would have had this group in the beginning of treatment she knows her boundaries would have been much more rigid with letting others in. Client identified she wants to continue to work on moving towards flexible boundaries by focusing on letting others in more and advocating for herself. Client showing progress AEB client reporting decreased depressive and anxious symptoms as well as seeing progress in self after applyign skills learned. Client to be discharged for IOP level of care this week. Eye Contact:: Good Motor Activity:: Appropriate Appearance:: Neat Speech:: Appropriate Mood:: Euthymic Affect:: Congruent Thoughts:: Linear, Logical, No evidence of hallucinations/delusions noted Staff Interventions:: Therapist facilitated the group discussion about importance of setting and maintaining boundaries. Therapist provided support by using reflective listening and giving feedback. Therapist processed client's view of how they currently set boundaries. Therapist inquired how client's current way of setting boundaries impacts them. Therapist elicited what client' s would change about the way currently set boundaries. Therapist provided feedback to group members.
== END 2017-07-14 23:59 ==
LOC: BHIOP 09:00
PROVIDERS: Visit Provider Psychiatry & Neurology Psychiatry
DX: F31.81 Bipolar II disorder (principal); F41.1 Generalized anxiety disorder; I49.9 Cardiac arrhythmia, unspecified; E03.9 Hypothyroidism, unspecified; Z79.899 Other long term (current) drug therapy
CPT/HCPCS: H0035; 90832; 90837; 90853